=== PATIENT | male | born 1945 | race Caucasian/White ===

== ENCOUNTER → 2017-01-23 | Outpatient (CLI) | payer OTHER, MEDICARE ==
[~2017-01-23] MED LIST: ADVIN25050 INH; ALBUAER2 INH; AMB10 PO; ASPCH81 PO; ATV5 PO; CETI10TA84 PO; CHOL20007 PO; ESCI1TAB6 PO; LISI-729 PO; METO25TA3 PO; METO25TA56 PO; METO50TA7 PO; OMEG10007 PO; OXYC-57 PO; PSYL55.43 PO; RXC5 PO; ZNTT/150 PO
--- NOTE | 2017-01-23 13:02 | DIAGNOSTIC IMAGING REPORT ---
BILATERAL LOWER EXTREMITY VENOUS DOPPLER HISTORY: Pain. Radiculopathy. Claudication. LUMBAR STENOSIS COMPARISON STUDY: None. FINDINGS: There is normal compressibility, flow, and augmentation within the bilateral lower extremity deep venous systems. IMPRESSION: No DVT within the right or left lower extremity. Electronically signed by: Isidro Rucker M.D. 01/23/2017 1:01 PM Dictated Date/Time: 01/23/2017 1:01 PM
--- NOTE | 2017-01-29 13:23 | CODING QUERY MEDICAL NECESSITY ---
SUPPORTING DIAGNOSIS NEEDED A supporting diagnosis is required for the test/procedure performed on this patient in order for us to be reimbursed by the patient's insurance. Please provide a supporting diagnosis for the following test/procedure listed below next to the test name along with your signature. *If there is no additional diagnosis for this patient that would support the following test/procedure please document that below next to the test/procedure. Test(s)/Procedure(s) that require a supporting diagnosis: * VENOUS DOPPLER LOWER EXTREMITY DIAGNOSIS: * DOS: 01/23/17 Provider Signature: Date: Thank you Nancy Roberts Health Information Management Once completed, please kindly fax back to [phone] For questions please call [phone]
== END | disposition home or self-care (01) ==
LOC: C.ULTR 11:52
PROVIDERS: ATTEND Orthopaedic Surgery Orthopaedic Surgery of the Spine
DX: M48.06 Spinal stenosis, lumbar region (principal); M79.604 Pain in right leg; M51.36 Other intervertebral disc degeneration, lumbar region; M71.38 Other bursal cyst, other site; J45.909 Unspecified asthma, uncomplicated; I10 Essential (primary) hypertension; E78.00 Pure hypercholesterolemia, unspecified; E78.5 Hyperlipidemia, unspecified; K21.9 Gastro-esophageal reflux disease without esophagitis; M19.90 Unspecified osteoarthritis, unspecified site; F41.9 Anxiety disorder, unspecified; F32.9 Major depressive disorder, single episode, unspecified; E66.9 Obesity, unspecified; Z68.32 Body mass index [BMI] 32.0-32.9, adult; Z96.653 Presence of artificial knee joint, bilateral; Z98.1 Arthrodesis status; Z79.51 Long term (current) use of inhaled steroids; Z79.82 Long term (current) use of aspirin; Z79.891 Long term (current) use of opiate analgesic; Z79.899 Other long term (current) drug therapy; Z87.891 Personal history of nicotine dependence

== ENCOUNTER 2017-02-23 05:25 | Inpatient (IN) | payer OTHER, MEDICARE ==
[2017-01-23 13:25] VITALS: BMI 32.0
--- NOTE | 2017-01-23 14:16 | PAT Medication Instructions ---
Service Date Jan 23, 2017. Current Home Medication List Albuterol (Ventolin), 2 PUFFS INH PRN Aspirin (Aspirin Tab-Chewable *), 81 MG PO HS Cetirizine (Zyrtec), 10 MG PO QAM Cholecalciferol (Vitamin D3), 5,000 UNIT PO QPM Escitalopram Oxalate (Lexapro), 5 MG PO HS Fish Oil (Harper-3), 1 CAP PO BID Fluticasone Prop/Salmeterol (Advair Diskus 250/50 Mcg *), 1 PUFF INH BID PRN for PRN Lisinopril (Zestril), 5 MG PO QAM Metoprolol Succ (Toprol Xl) (Toprol-Xl), 12.5 MG PO BID Oxycodone/Acetaminophen 5MG/325MG (Percocet 5MG/325MG), 1-2 TABLETS PO Q6HR PRN Psyllium (Metamucil Powder), 1 DOSE PO BID Ranitidine (Zantac), 150 MG PO BID Zolpidem Tartrate (Zolpidem Tartrate), 10 MG PO HS Medication Instructions For Your Scheduled Surgery - Check with surgeon for instructions: Aspirin (Aspirin Tab-Chewable *), 81 MG PO HS - Hold the following medications 2 weeks prior to surgery: Fish Oil (Harper-3), 1 CAP PO BID - Hold the following medications the morning of surgery: Ranitidine (Zantac), 150 MG PO BID Psyllium (Metamucil Powder), 1 DOSE PO BID Lisinopril (Zestril), 5 MG PO QAM - Take the following medications the morning of surgery with a sip of water: Metoprolol Succ (Toprol Xl) (Toprol-Xl), 12.5 MG PO BID Fluticasone Prop/Salmeterol (Advair Diskus 250/50 Mcg *), 1 PUFF INH BID PRN for PRN Albuterol (Ventolin), 2 PUFFS INH PRN (bring with you to hospital morning of surgery) Oxycodone/Acetaminophen 5MG/325MG (Percocet 5MG/325MG), 1-2 TABLETS PO Q6HR PRN (okay to take up to 4 hours prior to surgery if needed) - Take the following medications as scheduled the night before surgery: Zolpidem Tartrate (Zolpidem Tartrate), 10 MG PO HS Ranitidine (Zantac), 150 MG PO BID Psyllium (Metamucil Powder), 1 DOSE PO BID Fluticasone Prop/Salmeterol (Advair Diskus 250/50 Mcg *), 1 PUFF INH BID PRN for PRN Escitalopram Oxalate (Lexapro), 5 MG PO HS Cholecalciferol (Vitamin D3), 5,000 UNIT PO QPM Cetirizine (Zyrtec), 10 MG PO QAM Albuterol (Ventolin), 2 PUFFS INH PRN Oxycodone/Acetaminophen 5MG/325MG (Percocet 5MG/325MG), 1-2 TABLETS PO Q6HR PRN If you have any questions please call us at [phone] (Vicky Dacosta PA-C) or [phone] or [phone]
--- NOTE | 2017-01-23 14:46 | DIAGNOSTIC IMAGING REPORT ---
CHEST PREADMISSION(PA/LAT) CLINICAL HISTORY: Preoperative chest COMPARISON STUDY: 01/05/2016, 04/26/2010 FINDINGS: The cardiac and mediastinal contours remain stable. There is no failure. There is no focal pulmonary consolidation. There are no pleural effusions. There is a right suprahilar opacity, similar to the prior 2009 study favoring a summation with the second costochondral junction. There are no pleural effusions.[ There are postsurgical changes present within the cervical spine IMPRESSION: Stable right suprahilar opacity likely representing a summation. No acute findings. Electronically signed by: Jr Marks M.D. 01/23/2017 2:44 PM Dictated Date/Time: 01/23/2017 2:43 PM
[2017-01-23 14:55] LABS: BASO % 0.6 %; BASO ABS # 0.05 K/uL (0-0.2); COMPLETE YES; EOS % 4.1 %; HEMATOCRIT 43.7 % (42-52); IG% 0.1 %; LYMPH % 30.3 %; LYMPH ABS # 2.58 K/uL (1.2-3.4); MEAN CELL VOLUME 91.4 fL (80-100); MEAN CORPUSCULAR HEMOGLOBIN 31.8 pg (25-34); MEAN CORPUSCULAR HGB CONC 34.8 g/dl (32-36); MEAN PLATELET VOLUME 10.7 fL (7.4-10.4); MONO % 8.3 %; NEUT % 56.6 %; PLATELET COUNT 196 K/uL (130-400); RED BLOOD COUNT 4.78 M/uL (4.7-6.1); WHITE BLOOD COUNT 8.51 K/uL (4.8-10.8)
[2017-01-23 15:01] LABS: URINE APPEARANCE CLEAR (CLEAR); URINE BILIRUBIN NEG (NEG); URINE COLOR YELLOW; URINE NITRITE NEG (NEG); URINE SPECIFIC GRAVITY 1.007 (1.000-1.030); UROBILINOGEN NEG (NEG)
[2017-01-23 15:12] LABS: MANUAL MICROSCOPIC REQUIRED? NO; REVIEW REQ? NO
[2017-01-23 16:08] LABS: BUN/CREATININE RATIO 18.1 (10-20); CALCIUM 9.3 mg/dl (8.5-10.1); CREATININE 0.99 mg/dl (0.60-1.40); POTASSIUM 4.4 mmol/L (3.5-5.1)
--- NOTE | 2017-02-22 14:32 | HISTORY & PHYSICAL EXAMINATION ---
DATE OF ADMISSION: 02/23/2017 CHIEF COMPLAINT: Low back pain with difficulty standing and walking. HISTORY OF PRESENT ILLNESS: Mr. Jara is an individual who is well known to our practice. He had previously undergone surgeries in 2007 and 2009 on his lumbar spine essentially is fused from L2-S1. 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 He has failed conservative measures and at this point is considering surgical intervention. He has not had any loss of bladder or bowel function. He denies any other numbness, tingling or paresthesias. PAST MEDICAL HISTORY: Significant for asthma, hypertension, hypercholesterolemia, spinal stenosis. PAST SURGICAL HISTORY: He has had previous knee replacement in 2002, shoulder surgery in 2002, left shoulder surgery in 1995, back surgeries in 2008 and 2009 as described above. CURRENT MEDICATIONS: Include advair, albuterol, fexofenadine, metoprolol ER, ranitidine, Zyrtec, and Lexapro. ALLERGIES: HE HAS ALLERGIES mold AND DUST. REVIEW OF SYSTEMS: Recorded in the patient's medical history. Negative except for what is in the HPI. SOCIAL HISTORY: The patient is a 71-year-old man. He is . He consumes 1 glass of wine occasionally. He is a former cigarette smoker, quit in 1990, smoked a pack a day for 35 years. PHYSICAL EXAMINATION: GENERAL: He stands and moves easily about the exam room. He is 5 foot 9 inches, 210 pounds. MUSCULOSKELETAL: His lower extremity motor exam reveals no focal atrophy. Strength and sensation are both intact. Gait stable. NEUROLOGIC: Visual hoffmann are grossly intact. CARDIOVASCULAR: Reveals no gross abnormalities. ABDOMEN: Soft, nontender. EXTREMITIES: Calves are supple and nontender. BACK: Has a well-healed midline surgical scar. RADIOGRAPHIC IMAGES: MRI of the lumbar spine is available for review. This reveals disk desiccation at the L1-L2 junction. Postoperative changes noted from L2-S1. He has enlarged facet joint cyst at the L1-2 junction which is producing significant spinal stenosis. 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 PLAN: At this point, the patient has failed conservative measures and is considering surgical intervention. Surgically consider removing the hardware from L2-L4, decompression at the L1-L2 junction and continuing his fusion from T12 back down to L2 or L3. The main benefit of this approach is significant chance of reduction of his radicular complaints to a lesser degree his lower back pain. Risks of surgery include but are not limited to from anesthetic, stroke, blindness, infection, bleeding requiring transfusion, incomplete relief of symptoms, adjacent level disease. After thorough discussion with the patient, he would like to proceed with surgery as outlined above. We will make any further arrangements as needed. ARTEM
[~2017-02-23] VITALS: Ht 172.7 cm; Wt 99.9 kg
[2017-02-23] VITALS (8 sets, daily range): BP systolic 102–176; BP diastolic 62–84; PULSE 58–87; TEMP 36.1–36.7; O2SAT 96–100; Ht 172.7 cm; Wt 99.9 kg
[~2017-02-23 05:25] MED LIST changes: -ATV5 PO; -METO25TA56 PO; -METO50TA7 PO; -RXC5 PO
[2017-02-23] MEDS ORDERED: LACTATED RINGER'S 1000ML 1,000 ML IV SCH (06:00)
[2017-02-23] MEDS ORDERED: CEFAZOLIN 2000 MG/60 ML D5W IV SCH (06:00)
[2017-02-23] MEDS ORDERED: FENTANYL CITRATE INJ 50 MCG/1 ML 2 ML VIAL ONE ×3 (06:41→09:35)
[2017-02-23] MEDS ORDERED: MIDAZOLAM HCL 1 MG/ML 2ML VIAL ONE (06:41)
[2017-02-23] MEDS ORDERED: ALBUMIN HUMAN 5% 12.5 GM/250 ML VIAL IV ONE (06:48)
[2017-02-23] MEDS ORDERED: SODIUM CHLORIDE 0.9% PF 50 ML VIAL ONE (07:03)
[2017-02-23] MEDS ORDERED: BACITRACIN 50000 UNIT VIAL ONE (07:03)
[2017-02-23] MEDS ORDERED: BUPIVACAINE/EPINEPHRINE 0.5% MPF 1:200,000 30 ML VIAL ONE (07:03)
[2017-02-23] MEDS ORDERED: LACTATED RINGER'S 1000ML 1,000 ML IV PRN ×2 (07:26→10:38)
[2017-02-23] MEDS ORDERED: MoRPHine SULFATE 2 MG/ML CARP IV PRN (07:30)
[2017-02-23] MEDS ORDERED: FENTANYL CITRATE INJ 50 MCG/1 ML 2 ML VIAL IV PRN ×2 (07:30→10:45)
[2017-02-23] MEDS ORDERED: ONDANSETRON INJ 2 MG/ML 2 ML VIAL IV PRN ×3 (07:30→10:45)
--- NOTE | 2017-02-23 07:30 | History & Physical Bridge Note ---
H&P Re-Evaluation Bridge Note: I have examined the patient, reviewed the History & Physical and in the interval since the performance of the History & Physical I have noted the following changes of clinical significance: No changes noted
[2017-02-23] MEDS ORDERED: HYDROmorphone INJ 2 MG/ML SYR/VIAL ONE ×3 (08:10→10:23)
[2017-02-23] MEDS ORDERED: DEXAMETHASONE SOD INJ 4 MG/ML VIAL ONE (09:38)
[2017-02-23] MEDS ORDERED: PROPOFOL IV EMULSION 10 MG/ML 20 ML VIAL IV ONE (09:38)
[2017-02-23] MEDS ORDERED: LIDOCAINE HCL 2% 2 ML VIAL (20MG/ML) ONE (09:38)
[2017-02-23] MEDS ORDERED: ROCURONIUM BROMIDE 10 MG/ML 5 ML VIAL ONE (09:38)
[2017-02-23] MEDS ORDERED: FLOSEAL HEMOSTATIC MATRIX 10ML TOP ONE (09:58)
[2017-02-23] MEDS ORDERED: SODIUM CHLORIDE 0.9% 1000ML 1,000 ML IV SCH (10:08)
--- NOTE | 2017-02-23 10:08 | [facility] Post Operative Brief Note ---
Immediate Operative Summary Operative Date Feb 23, 2017. 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 Rosas Dumont Diversity Intern Surgeon(s) Vernon Razo PA-C Estimated Blood Loss 250 Findings stenosis Specimens SPECIMEN: A: removed hardware lumbar spine explant L2-L4
--- NOTE | 2017-02-23 10:11 | DIAGNOSTIC IMAGING REPORT ---
INTRAOPERATIVE RADIOGRAPHS CLINICAL HISTORY: T12-L3 spinal fusion. Fluoroscopy time: 24 seconds. FINDINGS: 3 spot fluoroscopic views of the thoracal lumbar junction are presented. There are changes from discectomy at L3-L4, with laminectomy and posterior fusion seen from T12 -L3. Interpedicular screws are present at all levels. The orthopedic hardware appears intact. IMPRESSION: Intraoperative images from T12 -L3 spinal fusion as above. Electronically signed by: Foster Meier M.D. 02/23/2017 10:10 AM Dictated Date/Time: 02/23/2017 10:09 AM
[2017-02-23] MEDS ORDERED: PROMETHAZINE HCL INJ 12.5 MG in SODIUM CHLORIDE 0.9% 50ML 50 ML IV PRN (10:15)
[2017-02-23] MEDS ORDERED: ALUMINUM/MAGNESIUM SUSP 30 ML UDC PO PRN (10:15)
[2017-02-23] MEDS ORDERED: METOCLOPRAMIDE HCL INJ 5 MG/ML 2 ML VIAL IV PRN (10:15)
[2017-02-23] MEDS ORDERED: LORAZEPAM 0.5 MG TAB PO PRN (10:15)
[2017-02-23] MEDS ORDERED: DO NOT ADMINISTER FLU VACCINE PRN ×3 (10:15)
[2017-02-23] MEDS ORDERED: DO NOT ADMINISTER PNEUMOCOCCAL VACCINE PRN ×2 (10:15)
[2017-02-23] MEDS ORDERED: BISACODYL 10 MG SUPP PR PRN (10:15)
[2017-02-23] MEDS ORDERED: ACETAMINOPHEN IV 100 ML IV PRN (10:15)
[2017-02-23] MEDS ORDERED: MAGNESIUM HYDROXIDE SUSP 30 ML UDC PO PRN (10:15)
[2017-02-23] MEDS ORDERED: HYDROmorphone HCL 0.5MG/ML 50 ML CASSETTE IV PRN (10:15)
[2017-02-23] MEDS ORDERED: FLUTICASONE/SALMETEROL 250/50 (ADVAIR) 14 PUFF/1 INHALER INH PRN (10:15)
[2017-02-23] MEDS ORDERED: ACETAMINOPHEN 500 MG TAB PO PRN (10:15)
[2017-02-23] MEDS ORDERED: ALBUTEROL HFA 8 GM INHALER INH PRN (10:15)
[2017-02-23] MEDS ORDERED: SOD PHOSPHATE/SOD BIPHOSPHATE ENEMA 132 ML BTL PR PRN (10:15)
[2017-02-23] MEDS ORDERED: LORAZEPAM INJ 0.5 MG in SYRINGE 0 ML IV PRN (10:15)
[2017-02-23] MEDS ORDERED: hydrOXYzine HCL 25 MG TAB PO PRN (10:15)
[2017-02-23] MEDS ORDERED: NALOXONE HCL 0.4 MG/1 ML VIAL/CARP IV PRN (10:15)
[2017-02-23] MEDS ORDERED: FAMOTIDINE 20 MG TAB PO PRN (10:15)
[2017-02-23] MEDS ORDERED: ONDANSETRON INJ 2 MG/ML 2 ML VIAL ONE (10:26)
[2017-02-23] MEDS ORDERED: EpHEDrine SULFATE 50MG/5ML SYR ONE (10:26)
[2017-02-23] MEDS ORDERED: NEOSTIGMINE METHYLSULFATE 1 MG/ML 10ML VIAL ONE (10:26)
[2017-02-23] MEDS ORDERED: GLYCOPYRROLATE INJ 0.2 MG/ML VIAL ONE (10:26)
[2017-02-23] MEDS ORDERED: HYDROmorphone HCL 0.5MG/ML 50 ML CASSETTE ONE (10:40)
[2017-02-23] MEDS ORDERED: MoRPHine SULFATE 10 MG/ML CARP/VIAL IV PRN (10:45)
--- NOTE | 2017-02-23 11:42 | Anesthesiology Progress Note ---
Anesthesia Post Op Note Date & Time Feb 23, 2017 at 11:42 Vital Signs Pain Intensity: 0 Vital Signs Past 12 Hours Date Time Temp Pulse Resp B/P Pulse Ox O2 Delivery O2 Flow Rate FiO2 02/23/17 11:30 68 14 129/74 99 Nasal Cannula 2 02/23/17 11:15 36.2 70 20 125/80 98 Nasal Cannula 2 02/23/17 11:05 75 13 150/82 97 Nasal Cannula 2 02/23/17 10:55 77 12 140/80 100 Mask 10 02/23/17 10:45 73 15 168/92 100 Mask 10 02/23/17 10:38 36.2 73 16 168/87 99 Mask 10 02/23/17 05:54 36.6 58 20 176/84 97 Room Air Notes Mental Status: alert / awake / arousable, participated in evaluation Pt Amnestic to Procedure: Yes Nausea / Vomiting: adequately controlled Pain: adequately controlled Airway Patency, RR, SpO2: stable & adequate BP & HR: stable & adequate Hydration State: stable & adequate Anesthetic Complications: no major complications apparent
--- NOTE | 2017-02-23 14:12 | OPERATIVE REPORT ---
DATE OF OPERATION: 02/23/2017 PREOPERATIVE DIAGNOSIS: Spinal stenosis. POSTOPERATIVE DIAGNOSIS: Same. PROCEDURE PERFORMED: 1. Removal of posterior instrumentation, L2-L3, L3-L4. 2. Exploration of fusion L2-L3, L3-L4. 3. Lumbar decompression, medial facetectomies, foraminotomies T12-L1 and L1-L2. 4. Posterior spinal fusion T12-L1, L1-L2, L2-L3. 5. Placement posterior segmental instrumentation T12-L3 using Orthros rods and screws as well as a crosslink. 6. Placement of locally harvested morcellized autograft in posterior gutters. 7. Placement of Infuse collagen sponge combined with Mastergraft T12-L3 in the posterior gutters. SURGEON: Dr. Rosas Dumont. WEB SOLUTIONS ARCHITECT: Due to the complex nature of the procedure, the entire surgery was performed with the assistant womens volleyball coach of [employer]. The psychology assistant, under direct supervision, was involved in the actual performance of all aspects of the surgical procedure including hemostasis, tissue retraction and incision, instrument management, patient positioning, and wound closure. ANESTHESIA: General. DISPOSITION: The patient awakened and taken to PACU in stable condition. HISTORY OF PATIENT'S PROBLEMS: This is a 71-year-old male who presents with above-mentioned diagnosis. After failing an extensive course of nonoperative care, elected to undergo the above-mentioned procedure. Risks, benefits, pros, cons, and alternatives were outlined in detail preoperatively. PROCEDURE: The patient was met preoperatively and the case discussed and all questions were addressed. At that point, the patient was taken back to operative suite and after undergoing successful general intubation by the department of anesthesia was placed in prone position on Gerber table atop Yogi frame. All bony prominences were well padded and the eyes were inspected to ensure there was no external pressure placed upon them. At this point, lumbar spine was prepped and draped in normal sterile fashion. Sharp assistance of Bovie cautery performed down to and exposing the lamina and transverse processes of T12, L1 and instrumentation at L2, L3, L4 levels bilaterally. I then proceeded to remove the hardware bilaterally exploring the fusion mass noting it to be intact and then completed a complete laminectomy of L1 and partial laminectomy of T12 addressing severe lateral recess foraminal disease. Pedicle screws were then placed in T12, L1, L2 and L3 bilaterally with the assistance of fluoroscopy and appropriate size rods locked into position. A crosslink was locked into position. The transverse processes of T12, L1, L2 and L3 were burred to subcortical bleeding bone. Infuse collagen sponge combined with Mastergraft locally harvested morselized autograft was placed in the posterior gutters. A 7 flat YVES drain inserted. Incision was closed with 1-0 Vicryl in the fascia, 2-0 Vicryl subcutaneously, 4-0 Monocryl for final skin closure. Steri-Strips and sterile dressing placed. The patient was awakened and taken to PACU in stable condition. I attest to the content of the Intraoperative Record and any orders documented therein. Any exceptio ns are noted below.
[2017-02-23] MEDS ORDERED: METO25TA56 PO (14:39)
[2017-02-23] MEDS ORDERED: COUGH DROP (SUGAR FREE) LOZ 24 LOZ/1 BOX ONE (15:37)
--- NOTE | 2017-02-23 15:54 | Medical Consult ---
Consultation Date of Consultation: Feb 23, 2017. Attending Physician: Rosas Dumont D.O. Reason for Consultation: Med management History of Present Illness 71 y/o M who was admitted earlier today s/p T12-L1, L1-L2 laminectomy. Pt is having a bit of pain from lying pressure and it is worse when he coughs. Otherwise he is doing well from that standpoint. No chest pain or SOB. He did not eat his meal tray due to no appetite, but no n/v or other GI concerns preventing him from eating. He feels he will be hungry for dinner. Pt denies fever, abd pain, c/d, LE pain or swelling. ROS as noted above, otherwise neg. Past Medical/Surgical History HTN Asthma--rare use of rescue inhaler GERD Depression Spinal stenosis HLD--no longer on statin due to elevated CPK levels Social History Smoking Status: Former Smoker (quit 1989) Alcohol Use: occasionally (1-2 glasses of wine per month) Allergies Coded Allergies: Dust (Verified Allergy, Mild, sneezing, eyes water, 02/23/17) POLLEN (Verified Allergy, Mild, SNEEEZING EYES WATER, 02/23/17) Aromatic Oils (Unverified Allergy, Unknown, PERFUMES, POWDER,CANDLES- SNEEZING,SOB,, 02/23/17) NO KNOWN DRUG ALLERGIES (Verified Allergy, Unknown, NKDA, 02/23/17) Current Inpatient Medications Current Inpatient Medications Medications (Trade) Dose Ordered Sig/Ky Route Start Time Stop Time Status Last Admin Dose Admin Cefazolin Sodium 60 ml @ 100 mls/hr PREOP IV 02/23/17 06:00 02/23/17 18:00 02/23/17 07:37 100 MLS/HR Lactated Ringer's 1,000 ml @ 15 mls/hr Q24H IV 02/23/17 06:00 02/24/17 05:59 02/23/17 06:20 15 MLS/HR Dexamethasone Sodium Phosphate 6 mg/Syringe 1.5 ml @ 1 mls/min Q8H IV 02/23/17 14:00 02/24/17 06:02 Promethazine HCl/ Sodium Chloride (Phenergan Inj/ Nss 50ml) 50.5 ml @ 202 mls/hr Q6H PRN IV 02/23/17 10:15 03/25/17 10:14 Ondansetron HCl (Zofran Inj) 4 mg Q6H PRN IV 02/23/17 10:15 03/25/17 10:14 Metoclopramide HCl (Reglan Inj) 10 mg Q6H PRN IV 02/23/17 10:15 03/25/17 10:14 Lorazepam 0.5 mg 0.5 mg Q8H PRN PO 02/23/17 10:15 03/25/17 10:14 Lorazepam/Syringe (Ativan Inj/ Syringe) 0.25 ml @ 1 mls/min Q8H PRN IV 02/23/17 10:15 03/25/17 10:14 Pneumococcal Polysaccharide Vaccine 1 ea PRN PRN N/A 02/23/17 10:15 03/25/17 10:14 Influenza Virus Vacc Triv Types A&B 1 ea PRN PRN N/A 02/23/17 10:15 03/25/17 10:14 Polyethylene (Miralax Powder Packet) 17 gm Q6 PO 02/25/17 06:00 03/27/17 05:59 Bisacodyl (Dulcolax Supp) 10 mg DAILY PRN OH 02/23/17 10:15 03/25/17 10:14 Magnesium Hydroxide (Milk Of Magnesia Susp) 30 ml DAILY PRN PO 02/23/17 10:15 03/25/17 10:14 Hydromorphone HCl (Dilaudid Inj) 0.5-1mg prn moder... Q3H PRN IV 02/24/17 06:00 03/10/17 05:59 Oxycodone HCl 5-10mg prn moderate to sev... Q4H PRN PO 02/24/17 06:00 03/10/17 05:59 Cefazolin Sodium 2000 mg/Dextrose 60 ml @ 100 mls/hr Q8H IV 02/23/17 16:00 02/24/17 00:35 Lactated Ringer's (Lr 1000ml) 1,000 ml @ 150 mls/hr Q6H40M IV 02/23/17 10:08 03/25/17 10:07 Acetaminophen 1000 mg 1,000 mg Q8H PRN PO 02/23/17 10:15 03/25/17 10:14 Acetaminophen (Ofirmev Iv) 100 ml @ 400 mls/hr Q8H PRN IV 02/23/17 10:15 03/25/17 10:14 Naloxone HCl (Narcan Inj) 0.1 mg Q5M PRN IV 02/24/17 06:00 03/26/17 05:59 Senna/Docusate Sodium (Senokot S Tab) 2 tab HS PO 02/23/17 21:00 03/25/17 20:59 Sodium Biphosphate/ Sodium Phosphate (Fleet Enema) 132 ml ONE PRN OH 02/23/17 10:15 03/25/17 10:14 Hydroxyzine HCl (Vistaril Tab) 25 mg Q8H PRN PO 02/23/17 10:15 03/25/17 10:14 Al Hydroxide/Mg Hydroxide (Maalox Susp) 30 ml Q6H PRN PO 02/23/17 10:15 03/25/17 10:14 Famotidine (Pepcid Tab) 20 mg Q12 PRN PO 02/23/17 10:15 03/25/17 10:14 Diphenhydramine HCl (Benadryl Cap) 25 mg Q6H PRN PO 02/23/17 10:15 03/25/17 10:14 Miscellaneous Information (Discontinue MACHINE TOOL BUILDER) 1 ea TODAY@0600 ONCE N/A 02/24/17 06:00 02/24/17 06:01 Naloxone HCl (Narcan Inj) 0.1 mg Q5M PRN IV 02/23/17 10:15 02/24/17 06:00 Hydromorphone HCl 25 mg 25 mg PRN PRN IV 02/23/17 10:15 02/24/17 06:00 Sodium Chloride (Nss 1000ml) 1,000 ml @ 15 mls/hr Q24H IV 02/23/17 10:08 02/24/17 06:00 Albuterol (Ventolin Hfa Inhaler) 2 puffs DAILY PRN INH 02/23/17 10:15 03/25/17 10:14 Aspirin (Ecotrin Tab) 81 mg HS PO 02/23/17 21:00 03/25/17 20:59 Escitalopram Oxalate (Lexapro Tab) 5 mg HS PO 02/23/17 21:00 03/25/17 20:59 Salmeterol Xinafoate/ Fluticasone (Advair Diskus 250/50 Inh) 1 puff BID PRN INH 02/23/17 10:15 03/25/17 10:14 Lisinopril (Zestril Tab) 5 mg QAM PO 02/24/17 09:00 03/26/17 08:59 Metoprolol Tartrate (Lopressor Tab) 12.5 mg BID PO 02/23/17 21:00 03/25/17 20:59 Ranitidine HCl (zANTac TAB) 150 mg BID PO 02/23/17 21:00 03/25/17 20:59 Zolpidem Tartrate (Ambien Tab) 10 mg HS PO 02/23/17 21:00 03/25/17 20:59 Physical Exam Date Time Temp Pulse Resp B/P Pulse Ox O2 Delivery O2 Flow Rate FiO2 02/23/17 15:13 36.1 66 16 102/63 100 Nasal Cannula 4.0 02/23/17 14:10 36.4 66 16 115/66 99 Nasal Cannula 4.0 02/23/17 12:50 70 16 122/69 99 Nasal Cannula 4.0 02/23/17 12:31 36.6 71 16 116/71 96 Nasal Cannula 2.0 02/23/17 11:30 68 14 129/74 99 Nasal Cannula 2 02/23/17 11:15 36.2 70 20 125/80 98 Nasal Cannula 2 02/23/17 11:05 75 13 150/82 97 Nasal Cannula 2 02/23/17 10:55 77 12 140/80 100 Mask 10 02/23/17 10:45 73 15 168/92 100 Mask 10 02/23/17 10:38 36.2 73 16 168/87 99 Mask 10 02/23/17 05:54 36.6 58 20 176/84 97 Room Air General Appearance: WD/WN, no apparent distress Respiratory/Chest: normal breath sounds, no respiratory distress Cardiovascular: regular rate, rhythm, no edema Abdomen/GI: non tender, soft Extremities/Musculoskelatal: no calf tenderness, no pedal edema Neurologic/Psych: alert, normal mood/affect, oriented x 3 Skin: normal color, warm/dry Assessment & Plan 71 y/o M who was admitted on 02/23 s/p T12-L1, L1-L2 laminectomy Laminectomy: as per ortho HTN: stable, continue home meds Asthma: states rare inhaler use and no issues thus far post-op on standard [place] GERD: continue home meds HLD: intolerance in the form of elevated CPK levels per pt
[2017-02-23] MEDS: DEXAMETHASONE INJ 6 MG in SYRINGE 0 ML IV SCH ×2 (16:01→22:02)
[2017-02-23] MEDS: LACTATED RINGER'S 1000ML 1,000 ML IV SCH ×3 (16:02→23:27)
[2017-02-23] MEDS: CEFAZOLIN IV 2,000 MG in DEXTROSE 5% 50ML 50 ML IV SCH ×2 (16:02→23:27)
[2017-02-23] MEDS: ZOLPIDEM TARTRATE 10 MG TAB PO SCH (21:58)
[2017-02-23] MEDS: ASPIRIN 81 MG ECTAB PO SCH (21:58)
[2017-02-23] MEDS: ESCITALOPRAM OXALATE 10 MG TAB PO SCH (22:00)
[2017-02-23] MEDS: RANITIDINE HCL 150 MG TAB PO SCH (22:00)
[2017-02-23] MEDS: DOCUSATE SODIUM/SENNA 50/8.6MG TAB PO SCH (22:00)
[2017-02-23] MEDS: METOPROLOL TARTRATE 25 MG TAB PO SCH (22:01)
[2017-02-24 03:10] VITALS: BP 104/67; PULSE 73; TEMP 36.8; O2SAT 92
[2017-02-24 05:58] LABS: BASO % 0.1 %; BASO ABS # 0.01 K/uL (0-0.2); COMPLETE YES; HEMATOCRIT 35.1 % (42-52); IG% 0.2 %; LYMPH % 6.8 %; MEAN CELL VOLUME 91.9 fL (80-100); MEAN CORPUSCULAR HEMOGLOBIN 31.2 pg (25-34); MEAN CORPUSCULAR HGB CONC 33.9 g/dl (32-36); MEAN PLATELET VOLUME 11.1 fL (7.4-10.4); MONO % 3.5 %; NEUT % 89.4 %; PLATELET COUNT 172 K/uL (130-400); RED BLOOD COUNT 3.82 M/uL (4.7-6.1)
[2017-02-24] MEDS ORDERED: DC PCA ONE (06:00)
[2017-02-24] MEDS ORDERED: NALOXONE HCL 0.4 MG/1 ML VIAL/CARP IV PRN (06:00)
[2017-02-24] MEDS ORDERED: HYDROmorphone INJ 0.5 MG/0.5 ML SYR IV PRN (06:00)
[2017-02-24] MEDS: DEXAMETHASONE INJ 6 MG in SYRINGE 0 ML IV SCH (06:06)
[2017-02-24] MEDS: LACTATED RINGER'S 1000ML 1,000 ML IV SCH (06:08)
[2017-02-24] MEDS ORDERED: NURSING DECISION MEDICATION ORDER SCH (06:15)
[2017-02-24 06:26] LABS: BUN/CREATININE RATIO 12.2 (10-20); CALCIUM 8.5 mg/dl (8.5-10.1); POTASSIUM 4.2 mmol/L (3.5-5.1)
[2017-02-24 06:47] VITALS: BP 112/68; PULSE 72; TEMP 36.7; O2SAT 94
--- NOTE | 2017-02-24 08:52 | PROGRESS NOTE ---
DATE: 02/24/2017 Postop day 1. Back pain controlled. Leg pain improved. Vital signs stable. T-max 36.8. YVES drained 75 mL last shift. Hematocrit this a.m. 35.1. PHYSICAL EXAMINATION: The patient is in chair at bedside. Has good strength to testing, appears comfortable. ASSESSMENT: Status post thoracolumbar fusion. PLAN: At this time, we will continue physical therapy today, advance his bowel regimen, assess his progress on Sunday. If all progresses appropriately, I anticipate discharge home Sunday, possibly home health.
--- NOTE | 2017-02-24 10:18 | Family Medicine Progress Note ---
Progress Note Date of Service Feb 24, 2017. Subjective Pt evaluation today including: conversation w/ patient, conversation w/ family , physical exam, chart review, lab review, conversation w/ field consultant, review of inpatient medication list Pain: Minimal with pain medications PO Intake: good Voiding: tinajero catheter in place Patient with no acute events overnight Lower back pain has improved substantially since surgery. Patient has been ambulating around the [place] without difficulty. He denies any urinary/bowel incontinence or loss of sensation around his buttocks. Denies any fevers, night sweats, chills, chest pain, shortness of breath or palpitations Additional Comments: Please review notes for ROS Medications Current Inpatient Medications Medications (Trade) Dose Ordered Sig/Ky Route Start Time Stop Time Status Last Admin Dose Admin Promethazine HCl/ Sodium Chloride (Phenergan Inj/ Nss 50ml) 50.5 ml @ 202 mls/hr Q6H PRN IV 02/23/17 10:15 03/25/17 10:14 Ondansetron HCl (Zofran Inj) 4 mg Q6H PRN IV 02/23/17 10:15 03/25/17 10:14 Metoclopramide HCl (Reglan Inj) 10 mg Q6H PRN IV 02/23/17 10:15 03/25/17 10:14 Lorazepam 0.5 mg 0.5 mg Q8H PRN PO 02/23/17 10:15 03/25/17 10:14 Lorazepam/Syringe (Ativan Inj/ Syringe) 0.25 ml @ 1 mls/min Q8H PRN IV 02/23/17 10:15 03/25/17 10:14 Pneumococcal Polysaccharide Vaccine 1 ea PRN PRN N/A 02/23/17 10:15 03/25/17 10:14 Influenza Virus Vacc Triv Types A&B 1 ea PRN PRN N/A 02/23/17 10:15 03/25/17 10:14 Polyethylene (Miralax Powder Packet) 17 gm Q6 PO 02/25/17 06:00 03/27/17 05:59 Bisacodyl (Dulcolax Supp) [address] 02/23/17 10:15 03/25/17 10:14 Magnesium Hydroxide (Milk Of Magnesia Susp) 30 ml DAILY PRN PO 02/23/17 10:15 03/25/17 10:14 Hydromorphone HCl (Dilaudid Inj) 0.5-1mg prn moder... Q3H PRN IV 02/24/17 06:00 03/10/17 05:59 Oxycodone HCl (Roxicodone Immediate Rel Tab) 5-10mg prn moderate to sev... Q4H PRN PO 02/24/17 06:00 03/10/17 05:59 Acetaminophen 1000 mg 1,000 mg Q8H PRN PO 02/23/17 10:15 03/25/17 10:14 Acetaminophen (Ofirmev Iv) 100 ml @ 400 mls/hr Q8H PRN IV 02/23/17 10:15 03/25/17 10:14 Naloxone HCl (Narcan Inj) 0.1 mg Q5M PRN IV 02/24/17 06:00 03/26/17 05:59 Senna/Docusate Sodium (Senokot S Tab) 2 tab HS PO 02/23/17 21:00 03/25/17 20:59 02/23/17 22:00 2 TAB Sodium Biphosphate/ Sodium Phosphate (Fleet Enema) [address] 02/23/17 10:15 03/25/17 10:14 Hydroxyzine HCl (Vistaril Tab) 25 mg Q8H PRN PO 02/23/17 10:15 03/25/17 10:14 Al Hydroxide/Mg Hydroxide (Maalox Susp) 30 ml Q6H PRN PO 02/23/17 10:15 03/25/17 10:14 Famotidine (Pepcid Tab) 20 mg Q12 PRN PO 02/23/17 10:15 03/25/17 10:14 Diphenhydramine HCl (Benadryl Cap) 25 mg Q6H PRN PO 02/23/17 10:15 03/25/17 10:14 Albuterol (Ventolin Hfa Inhaler) 2 puffs DAILY PRN INH 02/23/17 10:15 03/25/17 10:14 Aspirin (Ecotrin Tab) 81 mg HS PO 02/23/17 21:00 03/25/17 20:59 02/23/17 21:58 81 MG Escitalopram Oxalate (Lexapro Tab) 5 mg HS PO 02/23/17 21:00 03/25/17 20:59 02/23/17 22:00 5 MG Salmeterol Xinafoate/ Fluticasone (Advair Diskus 250/50 Inh) 1 puff BID PRN INH 02/23/17 10:15 03/25/17 10:14 Lisinopril (Zestril Tab) 5 mg QAM PO 02/24/17 09:00 03/26/17 08:59 02/24/17 11:01 5 MG Metoprolol Tartrate (Lopressor Tab) 12.5 mg BID PO 02/23/17 21:00 03/25/17 20:59 02/24/17 11:00 12.5 MG Ranitidine HCl (zANTac TAB) 150 mg BID PO 02/23/17 21:00 03/25/17 20:59 02/24/17 10:59 150 MG Zolpidem Tartrate (Ambien Tab) 10 mg HS PO 02/23/17 21:00 03/25/17 20:59 02/23/17 21:58 10 MG Objective Vital Signs Date Time Temp Pulse Resp B/P Pulse Ox O2 Delivery O2 Flow Rate FiO2 02/24/17 12:14 36.6 69 16 114/68 94 Room Air 02/24/17 08:15 Room Air 02/24/17 06:47 36.7 72 16 112/68 94 Room Air 02/24/17 03:10 36.8 73 16 104/67 92 Room Air 02/23/17 23:05 36.5 83 18 122/71 96 Room Air 02/23/17 22:00 87 123/62 02/23/17 19:40 Nasal Cannula 4.0 02/23/17 19:26 Nasal Cannula 4.0 02/23/17 18:59 36.7 73 18 129/66 97 Nasal Cannula 4.0 02/23/17 15:13 36.1 66 16 102/63 100 Nasal Cannula 4.0 Physical Exam General Appearance: WD/WN, no apparent distress Respiratory/Chest: lungs clear, normal breath sounds, no accessory muscle use Cardiovascular: regular rate, rhythm, no JVD, no murmur Abdomen: normal bowel sounds, non tender, soft Extremities: non-tender, no pedal edema, no calf tenderness, normal capillary refill, + pertinent finding (large white bandage on back without any discharge or surrounding erythema) Neurologic/Psychiatric: alert, normal mood/affect, oriented x 3, + sensory deficit (chronic sensory deficit on 3-5th fingers on left hand and of the forearm up to the mid forearm), + pertinent finding (+2 knee jerk reflex bilaterally, sensation intact distally, 4/5 power on left lower extermity, 5/5 power on right lower extremity) Assessment and Plan 71 y/o M who was admitted on 02/23 s/p T12-L1, L1-L2 laminectomy Laminectomy - pain control per ortho (oxy, dilaudid) - continue pt HTN - stable - lisinopril 5mg - aspirin 81 mg Asthma - O2 nasal cannula - inhalers on PRN basis at home (rarely has to use inhalers) GERD - ranitidine HLD - intolerance in the form of elevated CPK Depression - escitalopram Dispo - home health Sunday FULL CODE Continued [facility] stay due to: ambulation difficulties History Resident Physician Supervision Note: I was present with Dr. Ybarra during the history and exam. I discussed the case with the resident and agree with the findings and plan as documented in the note. Any exceptions or clarifications are listed here. Pt resting in chair at time of examination without complaint. Pain well controlled on present regimen. Ambulating extensively with supervision, participating in PT well. Reports no DAWKINS, vision changes, CP/SOB, n/v/d/c, abd pain, sensory changes, incontinence. General Appearance: WD/WN, no apparent distress Respiratory: chest non-tender, lungs clear, normal breath sounds, no respiratory distress Cardiovascular: normal peripheral pulses, regular rate, rhythm, no edema, no murmur Gastrointestinal: normal bowel sounds, non tender, soft, no organomegaly Assessment/Plan 71 y/o male h/o HTN, asthma p/w LBP now s/p laminectomy LBP s/p laminectomy - management per primary team, PT onboard HTN - continue lisinopril, ASA Asthma - O2 per protocol, albuterol PRN GERD - ranitidine HLD - no present therapy 2/2 h/o rhabdo w/ statin Depression - escitalopram
[2017-02-24] MEDS: RANITIDINE HCL 150 MG TAB PO SCH ×2 (10:59→21:24)
[2017-02-24] MEDS: METOPROLOL TARTRATE 25 MG TAB PO SCH ×2 (11:00→21:24)
[2017-02-24] MEDS: LISINOPRIL 5 MG TAB PO SCH (11:01)
[2017-02-24 12:14] VITALS: BP 114/68; PULSE 69; TEMP 36.6; O2SAT 94
[2017-02-24 15:18] VITALS: BP 113/70; PULSE 63; TEMP 36.6; O2SAT 96
[2017-02-24] MEDS: ZOLPIDEM TARTRATE 10 MG TAB PO SCH (21:00)
[2017-02-24 21:22] VITALS: BP 121/67; PULSE 73
[2017-02-24] MEDS: ASPIRIN 81 MG ECTAB PO SCH (21:23)
[2017-02-24] MEDS: DOCUSATE SODIUM/SENNA 50/8.6MG TAB PO SCH (21:24)
[2017-02-24] MEDS: ESCITALOPRAM OXALATE 10 MG TAB PO SCH (21:24)
[2017-02-24 22:55] VITALS: BP 127/70; PULSE 65; TEMP 36.7; O2SAT 94
[2017-02-25] MEDS: OXYCODONE HCL IR 5 MG TAB (IMMEDIATE RELEASE) PO PRN ×2 (04:15→12:34)
[2017-02-25] MEDS ORDERED: COUGH DROP (SUGAR FREE) LOZ 24 LOZ/1 BOX ONE (04:18)
[2017-02-25] MEDS: POLYETHYLENE (MIRALAX) 17 GM PACK PO SCH ×2 (04:22→10:25)
[2017-02-25] MEDS ORDERED: NURSING DECISION MEDICATION ORDER SCH ×2 (04:30→10:00)
[2017-02-25] MEDS ORDERED: COUGH DROP (SUGAR FREE) LOZ 24 LOZ/1 BOX PO PRN (05:00)
[2017-02-25 07:08] VITALS: BP 141/74; PULSE 55; TEMP 36.6; O2SAT 98
[2017-02-25] MEDS: LISINOPRIL 5 MG TAB PO SCH (08:39)
[2017-02-25] MEDS: METOPROLOL TARTRATE 25 MG TAB PO SCH (08:40)
[2017-02-25] MEDS: RANITIDINE HCL 150 MG TAB PO SCH (08:40)
[2017-02-25] MEDS ORDERED: RXC5 PO (12:08)
--- NOTE | 2017-02-25 12:14 | Discharge Instructions ---
Discharge Instructions Date of Service Feb 25, 2017. Admission Reason for Admission: Lumbar Spinal Stenosis Discharge Discharge Diagnosis / Problem: same Discharge Goals Goal(s): Decrease discomfort Activity Recommendations Activity Limitations: per Instructions/Follow-up section . Instructions / Follow-Up Instructions / Follow-Up ACTIVITY RECOMMENDATIONS: SELF CARE INSTRUCTIONS AFTER THORACIC/LUMBAR FUSIONS 1. You may walk to your tolerance. It is good exercise for your legs and back. Expect some back and intermittent leg aches and pains. 2. You may perform "counter-top" level activities (make a sandwich, faiza with a project, etc.). 3. No bending or lifting of more than 10 pounds or back twisting of any nature (roll like a log when turning in bed). 4. You may ride in a car for 20-30 minutes at a time. No driving until after your first visit with your doctor. 5. Frequent changes of position and restricting sitting to 30 minutes at a time will help limit the amount of back spasms and stiffness you may experience. 6. You may discontinue the use of ambulatory aids (cane, crutches, etc.) once your strength and confidence allow. 7. You may php software engineer the shower and let water strike your incision when you arrive home at least once daily. Do not take a tub bath, sit in a hot tub or go into a swimming pool until after your first recheck in the office. SPECIAL CARE INSTRUCTIONS: VERY IMPORTANT TO READ AND REVIEW A. Your surgical incision has been closed with a cosmetic suture under the skin that will dissolve in about 6 weeks. In 14 days, you can use a pair of clean scissors and cut the suture that is left outside of the skin at the ends of your incision. 1. The small skin tapes can be removed 7 days after surgery if they have not fallen off by that point. 2. You may keep the wound open to air as much as possible to promote healing after post-op day number 5 unless told otherwise by your doctor. 3. If you think the wound looks like it is becoming infected (redness or worsening drainage) and/or you are experiencing fever, chill or worsening back pain and muscle spasms, contact the office so that we may evaluate you as soon as possible. B. Complications are uncommon, but please contact us if you have any signs or symptoms of: 1. wound infection (fever higher than 102.5 degrees F, redness, separation of wound, drainage, or increasing pain from the incision) 2. blood clots in legs (pain, swelling, redness and warmth in legs) 3. urinary tract infection (fever higher than 102.5 degrees F, burning upon urination or increased frequency of urination) 4. nerve problems (inability to walk on your toes or heels, numbness, loss of bowel or bladder control) 5. any other symptoms that concern you C. Please call the office at if you have any concerns or questions about your operation or recovery. D. No smoking! Smoking drastically decreases the chance of a solid fusion. E. Do not take any anti-inflammatory medications (Indocin, Advil, Motrin, Aspirin, Naprosyn, etc.) as these may inhibit the chance of a solid fusion. Tylenol is okay to take for pain. MANAGING PAIN AFTER SPINAL SURGERY 1. Narcotic medication is intended for short-term use and will be provided for surgical pain. Surgical pain usually lasts for a period of 4-6 weeks. Narcotic medication includes Percocet, Vicodin, Darvocet, Tylenol #3 or Lortab. 2. Longer-term pain is more appropriately treated with non-narcotic medication such as Tylenol ES. 3. Muscle spasm is not appropriately treated with narcotics. Muscle relaxers such as Soma, Flexeril or Skelaxin can be used along with Tylenol ES. 4. Remember that we all live with some "aches and pains". This is not unusual or uncommon after an injury or as we get older. a. Back pain is expected and may include muscle spasms for 4 to 6 weeks after surgery. The pain should gradually improve. If the pain worsens for no apparent reason, please contact the office. b. Intermittent leg pain may also be experienced and should not be concerned about unless it worsens for no apparent reason. If so, please contact the office. 5. We will provide appropriate medication within the normal guidelines of their prescribed use. We will also be very cautious and aware of potential abuse and extended duration of patients' medication needs. a. Pain medications are for your comfort and to assist with sleep and rest so that the tissue can heal. They are not provided in order to return to normal activity and should not be used through the day. To do so or worsening pain at night can result from ongoing tissue damage and development of tolerance to the prescribed medicine. 6. Please allow 2-3 days to process refills. Prescriptions will not be mailed but must be picked up at the office. FOLLOW UP VISIT: Keep your scheduled follow-up appointment. Any questions, please call the office at . Current Hospital Diet Patient's current hospital diet: Regular Diet Discharge Diet Recommended Diet: Regular Diet Procedures Procedures Performed: decomp Pending Studies Studies pending at discharge: no Medical Emergencies . Who to Call and When: Medical Emergencies: If at any time you feel your situation is an emergency, please call 911 immediately. . Non-Emergent Contact Non-Emergency issues call your: Surgeon . "Provider Documentation" section prepared by Tiago Bauman. . VTE Core Measure Inpt VTE Proph given/why not?: SCD's [place] Drug Monitoring Program Search Results: patient reviewed within database, no issues identified
--- NOTE | 2017-02-25 12:20 | Orthopedic Progress Note ---
Orthopedic Progress Note Date of Service Feb 25, 2017. Subjective Post OP Day: 2 Reports: feeling well, pain controlled w PO medications, Denies: SOB, calf pain , chest pain, complaints, light headedness, nausea / vomiting, using [employer] Objective calves soft nontender, N/V intact, A&O x3, hemovac drainage Date Time Temp Pulse Resp B/P Pulse Ox O2 Delivery O2 Flow Rate FiO2 02/25/17 07:38 Room Air 02/25/17 07:08 36.6 55 16 141/74 98 Room Air 02/24/17 22:55 36.7 65 16 127/70 94 Room Air 02/24/17 21:22 73 121/67 02/24/17 20:00 Room Air 02/24/17 15:18 36.6 63 16 113/70 96 Room Air Assessment & Plan Assessment: stable, pain controlled Plan: doing well, d/c drain, d/c home
[2017-02-25 12:45] VITALS: BP 141/74; PULSE 55; TEMP 36.6; O2SAT 98
--- NOTE | 2017-02-25 14:27 | Family Medicine Progress Note ---
Progress Note Date of Service Feb 25, 2017. Subjective Pt evaluation today including: conversation w/ patient, conversation w/ family , physical exam, conversation w/ sustainable design consultant, review of inpatient medication list Pain: minimal PO Intake: good Voiding: no voiding problems Patient with no acute events overnight He has been able to ambulate around the halls without any difficulty. He rates his pain as a 0/10 in severity. He says that he had slight difficulty sleeping as he would have an increase in his back pain when moving around in bed. He denies any fevers, night sweats, chills, saddle parasthesia, incontinence, leg numbness/tingling, chest pain, shortness of breath or palpitations Additional Comments: Please see note for ROS Objective Vital Signs Date Time Temp Pulse Resp B/P Pulse Ox O2 Delivery O2 Flow Rate FiO2 02/25/17 12:45 36.6 55 16 98 Room Air 02/25/17 07:38 Room Air 02/25/17 07:08 36.6 55 16 141/74 98 Room Air 02/24/17 22:55 36.7 65 16 127/70 94 Room Air 02/24/17 21:22 73 121/67 02/24/17 20:00 Room Air 02/24/17 15:18 36.6 63 16 113/70 96 Room Air Physical Exam General Appearance: WD/WN, no apparent distress Respiratory/Chest: lungs clear, normal breath sounds, no accessory muscle use Cardiovascular: regular rate, rhythm, no edema, no JVD, no murmur Extremities: normal range of motion, non-tender, no calf tenderness, normal capillary refill, + pertinent finding (Bandage over wound on back, no drainage or erythema around dressing) Neurologic/Psychiatric: alert, normal mood/affect, oriented x 3, + sensory deficit (3rd->5th finger on left hand to mid forearm), + pertinent finding ( normal power, reflexes and tone bilaterally in lower extremities) Assessment and Plan 71 y/o M who was admitted on 02/23 s/p T12-L1, L1-L2 laminectomy Laminectomy - pain control per ortho (oxy, dilaudid) - continue pt HTN - stable - lisinopril 5mg - aspirin 81 mg Asthma - O2 nasal cannula - inhalers on PRN basis at home (rarely has to use inhalers) GERD - ranitidine HLD - intolerance in the form of elevated CPK Depression - escitalopram Dispo - Discharge today with home health Discharge planning: home with home health History Resident Physician Supervision Note: I was present with Dr. Ybarra during the history and exam. I discussed the case with the resident and agree with the findings and plan as documented in the note. Any exceptions or clarifications are listed here. At present, pain is well controlled by predominantly behavioral modification. Pt reports no DAWKINS, vision changes, CP/SOB, nausea, sensation changes. General Appearance: WD/WN, no apparent distress Respiratory: chest non-tender, lungs clear, normal breath sounds, no respiratory distress Cardiovascular: normal peripheral pulses, regular rate, rhythm, no edema, no murmur Gastrointestinal: normal bowel sounds, non tender, soft, no organomegaly Skin Characteristics: other (dressing C/D/I w/o surrounding erythema) Assessment/Plan 71 y/o male h/o HTN, asthma p/w LBP now s/p laminectomy LBP s/p laminectomy - management per primary team, PT onboard HTN - well controlled at present - continue lisinopril, ASA Asthma - O2 per protocol, albuterol PRN GERD - ranitidine regimen, continue as OP HLD - no present therapy 2/2 h/o rhabdo w/ statin Depression - escitalopram
--- NOTE | 2017-03-02 15:43 | DISCHARGE SUMMARY ---
ADMITTING DIAGNOSIS: Spinal stenosis. DISCHARGE DIAGNOSIS: Same. OPERATION: Were a removal of instrumentation L2-L3, L3-L4, exploration of fusion, lumbar decompression from T12-L1 with continuation of spinal fusion from T12-L3. ATTENDING PHYSICIAN: Dr. Rosas Dumont. HOSPITAL COURSE AND TREATMENT: Mr. Jara is a patient with history, physical examination, radiographic images consistent with the above-mentioned diagnosis. For this reason, he was brought to the operating room on 02/15/2017, underwent the above-mentioned procedures performed by Dr. Dumont under general anesthesia. He left the operating room with YVES drain in place and was transferred to PACU in stable condition. He is placed on GI and DVT prophylaxis. Given a SHELF STOCKER for pain control. Medical consultation was obtained to help manage his medical issues during his stay. Throughout his hospital course, his calves remained supple and nontender. Dressing remained clean, dry and intact. He was seen by physical therapy postoperative day #1 for ambulation and gait training. On 02/25/2017 the patient was deemed safe for home discharge. His discharge orders were to resume his prehospital medications. Use oxycodone for pain control. He is to change his dressing once daily until the dressing was dry, then he may start showering and no longer needed to use his coverage. He was to avoid any full bending at the waist, lifting anything heavier than 5-7 pounds. He is to call the office for an appointment approximately 2 weeks out from surgery or sooner if he developed any fevers, chills, increased drainage from the incision, numbness or tingling.
== END 2017-02-25 14:02 | disposition home or self-care (01) | DRG 460 ==
LOC: ENRESERVDT → ENRESERVTM → C.ACU 05:25 → C.MSW 07:30
PROVIDERS: ADMIT Orthopaedic Surgery Orthopaedic Surgery of the Spine; ATTEND Orthopaedic Surgery Orthopaedic Surgery of the Spine
PROC: 0SG0071 Fusion of Lumbar Vertebral Joint with Autologous Tissue Substitute, Posterior Approach, Posterior Column, Open Approach (ICD-10-PCS; principal; 2017-02-23 07:45)
PROC: 3E0U0GB Introduction of Recombinant Bone Morphogenetic Protein into Joints, Open Approach (ICD-10-PCS; principal; 2017-02-23 07:45)
PROC: 0SP004Z Removal of Internal Fixation Device from Lumbar Vertebral Joint, Open Approach (ICD-10-PCS; principal; 2017-02-23 07:45)
PROC: 0RGA071 Fusion of Thoracolumbar Vertebral Joint with Autologous Tissue Substitute, Posterior Approach, Posterior Column, Open Approach (ICD-10-PCS; principal; 2017-02-23 07:45)
DX: M48.06 Spinal stenosis, lumbar region (principal); M51.36 Other intervertebral disc degeneration, lumbar region; M71.38 Other bursal cyst, other site; J45.909 Unspecified asthma, uncomplicated; I10 Essential (primary) hypertension; E78.00 Pure hypercholesterolemia, unspecified; E78.5 Hyperlipidemia, unspecified; K21.9 Gastro-esophageal reflux disease without esophagitis; M19.90 Unspecified osteoarthritis, unspecified site; F41.9 Anxiety disorder, unspecified; F32.9 Major depressive disorder, single episode, unspecified; E66.9 Obesity, unspecified; Z68.32 Body mass index [BMI] 32.0-32.9, adult; Z96.653 Presence of artificial knee joint, bilateral; Z98.1 Arthrodesis status; Z79.51 Long term (current) use of inhaled steroids; Z79.82 Long term (current) use of aspirin; Z79.891 Long term (current) use of opiate analgesic; Z79.899 Other long term (current) drug therapy; Z87.891 Personal history of nicotine dependence

== ENCOUNTER → 2018-05-21 | Outpatient (CLI) | payer OTHER, MEDICARE ==
[~2018-05-21] MED LIST changes: -METO25TA3 PO; +METO25TA56 PO; +RANI150T85 PO; +RXC5 PO; -ZNTT/150 PO
[2018-05-21 18:09] LABS: ALBUMIN 3.6 gm/dl (3.4-5.0); BLOOD UREA NITROGEN 18 mg/dl (7-18); CALCIUM 9.1 mg/dl (8.5-10.1); CARBON DIOXIDE 27 mmol/L (21-32); CREATININE 1.19 mg/dl (0.60-1.40); GLUCOSE 189 mg/dl (70-99); PHOSPHORUS 2.3 mg/dl (2.5-4.9); POTASSIUM 4.1 mmol/L (3.5-5.1); SODIUM 137 mmol/L (136-145)
== END | disposition home or self-care (01) ==
LOC: C.LABMFLN 11:36
PROVIDERS: ATTEND Family Medicine
DX: I10 Essential (primary) hypertension (principal)

== ENCOUNTER → 2018-05-30 | Outpatient (CLI) | payer OTHER, MEDICARE ==
[2018-05-31 06:11] LABS: HEMOGLOBIN A1C 5.9 % (4.5-5.6)
== END | disposition home or self-care (01) ==
LOC: C.LABMFLN 14:42
PROVIDERS: ATTEND Family Medicine
DX: R73.9 Hyperglycemia, unspecified (principal)

== ENCOUNTER 2023-12-05 08:42 | Observation (INO) ==
--- NOTE | 2023-11-07 09:03 | PAT Medication Instructions ---
Medication Instructions Date of Service November 07, 2023 Home Medications Medication Instructions Recorded lidocaine 5 % topical patch 1 patch transdermal .COMPLEX #3 06/02/19 Boxes Wheeled Walker #1 ea 01/24/23 gabapentin 300 mg capsule 300 mg PO HS #90 caps 03/12/23 zolpidem 10 mg tablet 10 mg PO HS PRN insomnia #90 tabs 09/12/23 lidocaine 5 % topical patch 1 patch transdermal .COMPLEX cetirizine 10 mg tablet 10 mg PO QAM omega-3 acid ethyl esters 1 gram capsule 1 cap PO BID cholecalciferol (vitamin D3) 25 mcg (1,000 unit) capsule 25 mcg PO QPM gabapentin 300 mg capsule 300 mg PO HS cinnamon bark 500 mg capsule (Cinnamon) 500 mg PO BID omeprazole 20 mg capsule,delayed release 20 mg PO QAM zolpidem 10 mg tablet 10 mg PO HS PRN insomnia Bacillus coagulans 800 million cell tablet (Digestive Advantage Probiotics-Prebiotic) 1,600 cell PO BID albuterol sulfate 90 mcg/actuation aerosol inhaler 1 inh inhalation QID PRN sob escitalopram oxalate 5 mg tablet 5 mg PO QPM famotidine 20 mg tablet 20 mg PO QPM lubiprostone 24 mcg capsule (Amitiza) 24 mcg PO BID polyethylene glycol 3350 17 gram oral powder packet (Miralax) 8.5 g PO Q3D psyllium husk (with sugar) 2.5 gram oral wafer (Metamucil Fiber Thin) 2 wafer PO QDL Continue as directed lidocaine 5 % topical patch 1 patch transdermal .COMPLEX (avoid placement near surgery site prior to surgery) STOP taking 2 weeks before surgery (or as soon as possible if surgery is within 2 weeks) omega-3 acid ethyl esters 1 gram capsule 1 cap PO BID cinnamon bark 500 mg capsule (Cinnamon) 500 mg PO BID DO NOT take the morning of surgery cetirizine 10 mg tablet 10 mg PO QAM Bacillus coagulans 800 million cell tablet (Digestive Advantage Probiotics- Prebiotic) 1,600 cell PO BID lubiprostone 24 mcg capsule (Amitiza) 24 mcg PO BID polyethylene glycol 3350 17 gram oral powder packet (Miralax) 8.5 g PO Q3D psyllium husk (with sugar) 2.5 gram oral wafer (Metamucil Fiber Thin) 2 wafer PO QDL Take morning of surgery With a small sip of water, OTHERWISE NOTHING TO EAT OR DRINK AFTER MIDNIGHT: omeprazole 20 mg capsule,delayed release 20 mg PO QAM albuterol sulfate 90 mcg/actuation aerosol inhaler 1 inh inhalation QID PRN sob (use if needed; please bring rescue inhaler with you to hospital day of surgery if possible) Take evening before surgery cholecalciferol (vitamin D3) 25 mcg (1,000 unit) capsule 25 mcg PO QPM gabapentin 300 mg capsule 300 mg PO HS zolpidem 10 mg tablet 10 mg PO HS PRN insomnia (if needed) Bacillus coagulans 800 million cell tablet (Digestive Advantage Probiotics- Prebiotic) 1,600 cell PO BID albuterol sulfate 90 mcg/actuation aerosol inhaler 1 inh inhalation QID PRN sob (if needed) escitalopram oxalate 5 mg tablet 5 mg PO QPM famotidine 20 mg tablet 20 mg PO QPM lubiprostone 24 mcg capsule (Amitiza) 24 mcg PO BID Other Notes If you have any questions please call us at [phone] or [phone] or [phone] or [phone]
--- NOTE | 2023-11-09 14:10 | Anesthesiology Consultation ---
Date of Service November 09, 2023 Assessment & Plan (1) Encounter for pre-operative examination: - check BSG am DOS. - post-op severe eye discomfort after previous shoulder surgery: patient and feel that this was due to the peripheral block for that shoulder surgery noting he had multiple previous surgeries without this issue and that this was first surgery with a peripheral nerve block. Sonosite and block notations marked for OR in case patient elects to pursue peripheral nerve block. - post-op urinary retention: patient and are requesting urinary catheterization during operation due to history of post-op urinary retention. They were advised that is determined/coordinated through the surgeon's office. Surgeon's office notified, they will follow-up with surgeon's office for further discussion/coordination. - Outpatient joint assessment: Patient is currently scheduled for inpatient pathway. If re-evaluated and patient/surgeon requests outpatient pathway, patient is not recommended candidate for outpatient joint program from anesthesia standpoint. Chart Review Chart Review: Acceptable Risk for Surgery and Patient seen in Pre Admission Testing Teaching & Discussion Pre-Anesthesia Teaching/Discussion Notes: Instructed NPO after midnight before surgery, except medications with 15 cc of water. Medication instructions provided according to the PAT guidelines. History Surgery Operation Date: 12/05/23 10:05 Proposed Procedures p Right Reverse Total Shoulder Arthroplasty - Doe Dejesus MD Height/Weight Height: 5 ft 8 in Weight: 86.4 kg Allergies Allergy/AdvReac Type Severity Reaction Status Date / Time pollen extracts Allergy Mild sneezing, Verified 11/09/23 14:28 eyes watering No Known Drug Allergies Allergy Unknown NKDA Verified 11/06/23 13:06 Dust Allergy Mild sneezing, Uncoded 11/06/23 13:06 eyes water Aromatic Oils Allergy Unknown perfume, Uncoded 11/09/23 14:28 powder, candles-SOB Medications Home Medications Medication Instructions Recorded Confirmed Last Taken lidocaine 5 % topical patch 1 patch transdermal .COMPLEX #3 06/02/19 11/06/23 Unknown Boxes cetirizine 10 mg tablet 10 mg PO QAM 06/05/19 11/06/23 Unknown omega-3 acid ethyl esters 1 gram 1 cap PO BID 06/05/19 11/06/23 Unknown capsule cholecalciferol (vitamin D3) 25 25 mcg PO QPM 03/01/21 11/06/23 Unknown mcg (1,000 unit) capsule Wheeled Walker #1 ea 01/24/23 06/11/23 Unknown gabapentin 300 mg capsule 300 mg PO HS #90 caps 03/12/23 11/06/23 Unknown cinnamon bark 500 mg capsule 500 mg PO BID 09/12/23 11/06/23 Unknown (Cinnamon) omeprazole 20 mg capsule,delayed 20 mg PO QAM 09/12/23 11/06/23 Unknown release zolpidem 10 mg tablet 10 mg PO HS PRN insomnia #90 tabs 09/12/23 11/06/23 Unknown Bacillus coagulans 800 million 1,600 cell PO BID 11/06/23 11/06/23 Unknown cell tablet (Digestive Advantage Probiotics-Prebiotic) albuterol sulfate 90 mcg/actuation 1 inh inhalation QID PRN sob 11/06/23 11/06/23 Unknown aerosol inhaler escitalopram oxalate 5 mg tablet 5 mg PO QPM 11/06/23 11/06/23 Unknown famotidine 20 mg tablet 20 mg PO QPM 11/06/23 11/06/23 Unknown lubiprostone 24 mcg capsule 24 mcg PO BID 11/06/23 11/06/23 Unknown (Amitiza) polyethylene glycol 3350 17 gram 8.5 g PO Q3D 11/06/23 11/06/23 Unknown oral powder packet (Miralax) psyllium husk (with sugar) 2.5 2 wafer PO QDL 11/06/23 11/06/23 Unknown gram oral wafer (Metamucil Fiber Thin) Past Medical History Medical History (Updated 11/09/23 @ 14:33 by Fanta Oliver PA-C) Allergic rhinitis Asthma well controlled. rarely uses rescue inhalers-last used several months ago Balance problems utilizes rolling walker to aid ambulation Benign colonic polyp Benign essential hypertension controlled, stable per pt C. difficile colitis hx 03/2023 - no problems since Cervical radiculopathy Chronic constipation Chronic low back pain unable to sleep in bed - patient sleeps in a recliner at home. Depression Diabetes mellitus diet controlled Esophageal reflux controlled, stable per pt Foot drop Frequent falls pt and deny any recent falls History of anesthesia complications post-op urinary retention. post-op severe eye discomfort "felt like sand in eyes." hypotension/slowness to wake after cataract surgery History of blood transfusion 2021 History of COVID-16 Mar 2022 - mild cold symptoms - treated with paxlovid. no current issues. Hx of basal cell carcinoma ear and scalp s/p excisions Hyperlipidemia Iron deficiency anemia Peripheral neuropathy bilateral feet - also has "no feeling in his left fingers/hand" Patient denies h/o stroke, seizures, heart attack, heart failure, or blood clots/DVTs. Exercise / Class Metabolic Activity III < 4 Walking/Shop/Light housework (ambulates with rolling walker-denies chest discomfort or shortness of breath with usual activities) Past Family History Family History Mother Stroke Grandmother Colorectal cancer Grandfather (Maternal) Myocardial infarction Grandfather (Paternal) Myocardial infarction Father Myocardial infarction Other No family history of adverse response to anesthesia Denies family history of Ovarian cancer Prostate cancer Breast cancer Lung cancer Past Surgical History Surgical History (Updated 11/09/23 @ 14:31 by Fanta Oliver PA-C) H/O arthroscopy of knee bilateral H/O neck surgery ACDF unsure of the levels fused. History of carpal tunnel surgery bilateral History of colonoscopy multiple History of esophagogastroduodenoscopy (EGD) History of prostate biopsy History of repair of rotator cuff bilateral S/P cholecystectomy S/P decompression of ulnar nerve at elbow bilateral S/P epidural steroid injection S/P knee replacement bilateral S/P lumbar fusion unsure of levels - last surgery in 2015. (total of 3 different lumbar fusions) severe chronic back pain S/P Mohs surgery for basal cell carcinoma Status post surgical removal of malignant neoplasm of skin Status post vasectomy Past Anesthesia History No Family Hx of Anesthesia Complications and Other (post-op urinary retention. post-op severe eye discomfort "felt like sand in eyes." pt felt eye discomfort was due to peripheral nerve block. hypotension/slowness to wake during cataract surgery) History of PONV No Hx of PONV and No Hx of Motion Sickness Social History Smoking Status: Former smoker Do You Dip or Chew Tobacco: No Hx Alcohol Use: Yes Alcohol type: beer alcohol intake frequency: other (once monthly) Hx Substance Use: No Review of Systems Patient denies chest pain, shortness of breath, dyspnea on exertion, fever, chills, cough, wheezing, or palpitations. Physical Exam Vital Signs Vitals BP 143/75 P 66 TEMP 97.9 SP02 97% on RA RESP 17 Physical Patient resting comfortably in chair in no acute distress, alert and oriented, responding appropriately throughout visit Full cervical extension range of motion without pain TMD 3.5 finger breadths Mallampati Score 2 Dentition: several crowns and implant-front upper; denies chipped or loose teeth, caps, or bridges Lungs: normal respiratory effort. Good air movement, clear throughout to auscultation, no adventitious breath sounds Cardiac: regular rate and rhythm, no murmurs noted Carotid arteries: negative bruit bilat Lab Results Anesthesia Preop Results Results Anesthesia Widget: WBC 8.49 K/ul (4.8-10.8) 11/09/23 Hgb 14.2 g/dl (14.0-18.0) 11/09/23 Hct 43.8 % (42.0-52.0) 11/09/23 Plt 245 K/uL (130-400) 11/09/23 Na 137 mmol/L (136-145) 11/09/23 K 4.3 mmol/L (3.5-5.1) 11/09/23 Cl 100 mmol/L (98-107) 11/09/23 CO2 30 mmol/L (21-32) 11/09/23 BUN 23 mg/dl (6-23) 11/09/23 Creat 1.03 mg/dl (0.6-1.4) 11/09/23 Glucose Level 128 mg/dl (70-99(Fasting)) H 11/09/23 PT 10.9 Seconds (9.0-12.0) 11/09/23 PTT 28 Seconds (21-31) 11/09/23 INR 1.0 (0.9-1.1) 11/09/23 HA1c 5.8 % (4.5-5.6) H 11/09/23 Urine Color Yellow 11/09/23 Urine Appearance Clear (Clear) 11/09/23 Urine pH 5.5 (4.5-7.5) 11/09/23 Urine Specific [place] 1.021 (1.000-1.030) 11/09/23 Urine Protein Negative (Negative) 11/09/23 Urine Glucose (UA) Negative (Negative) 11/09/23 Urine Ketones Negative (Negative) 11/09/23 Urine Blood Negative (Negative) 11/09/23 Urine Nitrite Negative (Negative) 11/09/23 Urine Bilirubin Negative (Negative) 11/09/23 Urine Urobilinogen Negative (Negative) 11/09/23 Urine Leukocyte Esterase Trace (Negative) H 11/09/23 Urine WBC (Auto) 10-30 /hpf (0-5) H 11/09/23 Urine RBC (Auto) 5-10 /hpf (0-4) H 11/09/23 Urine Hyaline Casts (Auto) 1-5 /lpf (0-5) 11/09/23 Urine Epithelial Cells (Auto) 10-20 /lpf (0-5) H 11/09/23 Urine Bacteria (Auto) Negative (Negative) 11/09/23 Blood Type A Positive 11/09/23 Antibody Screen NEGATIVE 11/09/23 Testing Laboratory Results Surgeon's office made aware of abnormal UA. Electrocardiogram Date: 04/09/23 NSR, rate 90 bpm PACs Possible anterior infarct cited on or before 06/04/22 Chest X-Ray Date: 04/09/23 No acute cardiopulmonary process. Other Testing CT abdomen pelvis 04/09/23 Abdominal aortic and branch vessel peripheral artery disease. Acute colitis differential diagnosis includes inflammatory or infectious colitis, correlate clinically. Acute duodenitis. Osteopenia.
--- NOTE | 2023-12-04 19:37 | History & Physical Report ---
Date of Service December 04, 2023 Assessment & Plan (1) Rotator cuff arthropathy of right shoulder: Plan: Treatment options discussed with the patient. He has failed conservative measures and would like to proceed with surgical management. Risks, benefits and alternatives to surgery including but not limited to infection, DVT, pain, stiffness, need for revision surgery, damage to blood vessels, damage to nerves, PE, , were discussed with the patient and they wish to proceed. Plan on right reverse total shoulder arthroplasty scheduled for December 05 at [facility] with Dr. Dejesus. All questions answered. Patient will follow-up postoperatively. History of Present Illness Chief Complaint: Right shoulder pain Primary Care Provider: MARIANN Edmonds 78-year-old male with past medical history significant for high cholesterol, history of basal cell carcinoma, diabetes, who presents with ongoing right s houlder pain. Pain is interfering with his daily activities. He has failed conservative measures and would like to proceed with surgical management. Patient denies headaches, sweats, fevers, chills, double vision, blurred vision, cough, sore throat, dysphagia, chest pain, sob, wheezing, n/v/d/c, numbness, tingling, fatigue, urinary symptoms, mood disorders. ROS positive for right shoulder pain and stiffness. Allergies Allergy/AdvReac Type Severity Reaction Status Date / Time pollen extracts Allergy Mild sneezing, Verified 11/13/23 14:31 eyes watering No Known Drug Allergies Allergy Unknown NKDA Verified 11/13/23 14:31 Dust Allergy Mild sneezing, Uncoded 11/13/23 14:31 eyes water Aromatic Oils Allergy Unknown perfume, Uncoded 11/13/23 14:31 powder, candles-SOB Home Medications Medication Instructions Recorded Confirmed Type lidocaine 5 % topical patch 1 patch transdermal .COMPLEX #3 06/02/19 11/13/23 Rx Boxes cetirizine 10 mg tablet 10 mg PO QAM 06/05/19 11/13/23 History omega-3 acid ethyl esters 1 gram 1 cap PO BID 06/05/19 11/13/23 History capsule cholecalciferol (vitamin D3) 25 25 mcg PO QPM 03/01/21 11/13/23 History mcg (1,000 unit) capsule Wheeled Walker #1 ea 01/24/23 11/13/23 Rx gabapentin 300 mg capsule 300 mg PO HS #90 caps 03/12/23 11/13/23 Rx cinnamon bark 500 mg capsule 500 mg PO BID 09/12/23 11/13/23 History (Cinnamon) omeprazole 20 mg capsule,delayed 20 mg PO QAM 09/12/23 11/13/23 History release zolpidem 10 mg tablet 10 mg PO HS PRN insomnia #90 tabs 09/12/23 11/13/23 Rx Bacillus coagulans 800 million 1,600 cell PO BID 11/06/23 11/13/23 History cell tablet (Digestive Advantage Probiotics-Prebiotic) albuterol sulfate 90 mcg/actuation 1 inh inhalation QID PRN sob 11/06/23 11/13/23 History aerosol inhaler escitalopram oxalate 5 mg tablet 5 mg PO QPM 11/06/23 11/13/23 History famotidine 20 mg tablet 20 mg PO QPM 11/06/23 11/13/23 History lubiprostone 24 mcg capsule 24 mcg PO BID 11/06/23 11/13/23 History (Amitiza) polyethylene glycol 3350 17 gram 8.5 g PO Q3D 11/06/23 11/13/23 History oral powder packet (Miralax) psyllium husk (with sugar) 2.5 2 wafer PO QDL 11/06/23 11/13/23 History gram oral wafer (Metamucil Fiber Thin) Past Med/Surg History Medical History History of anesthesia complications History of blood transfusion History of COVID-19 Hx of basal cell carcinoma C. difficile colitis Frequent falls Chronic constipation Iron deficiency anemia Diabetes mellitus Chronic low back pain Peripheral neuropathy Hyperlipidemia Foot drop Esophageal reflux Depression Cervical radiculopathy Benign essential hypertension Benign colonic polyp Balance problems Asthma Allergic rhinitis Surgical History History of colonoscopy S/P Mohs surgery for basal cell carcinoma S/P decompression of ulnar nerve at elbow History of repair of rotator cuff S/P lumbar fusion S/P epidural steroid injection History of esophagogastroduodenoscopy (EGD) History of carpal tunnel surgery Status post surgical removal of malignant neoplasm of skin Status post vasectomy History of prostate biopsy S/P knee replacement H/O arthroscopy of knee S/P cholecystectomy H/O neck surgery Family History Mother Stroke Grandmother Colorectal cancer Grandfather (Maternal) Myocardial infarction Grandfather (Paternal) Myocardial infarction Father Myocardial infarction Other No family history of adverse response to anesthesia Denies family history of Ovarian cancer Prostate cancer Breast cancer Lung cancer Social History Smoking Status: Former smoker Tobacco Type: Cigarettes Age Started Using Tobacco: 11; packs per day: 1; Second Hand Exposure: No; Do You Dip or Chew Tobacco: No; Tobacco Cessation Education Requested by Patient: No Hx Alcohol Use: Yes Alcohol type: beer Hx Substance Use: No Preferred Language: Luxembourgish Communication Ability: Effective Visual Impairment: Partially Limited Hearing Ability: Hard of Hearing Category Manager Required: No Beliefs That Will Affect Care: None marital status: Current Living Situation: Spouse current occupational status: retired How many Children do You have: 2 Other Information That Helps Us Care for You: No Feels Safe at Home: Yes Safety Concerns: Feels Safe At This Time Childhood Exposure to Second-Hand Smoke: Yes Diet: regular Diet Comment: regular caffeine: Yes (1 cup of coffee) during the past year weight has: decreased > 10 lbs Dental Care, Regularly: Yes Physical Activity Frequency: Does not Exercise Seatbelt Use: always Sunscreen Use: No Assistive Devices: Glasses and Walker Review of Systems All systems reviewed & are unremarkable except as noted in HPI & below Physical Exam Constitutional: well developed and well nourished; no acute distress Eyes: PERRL, conjunctivae normal, anicteric sclerae ENMT: external ear and nose normal, oropharynx normal Neck: trachea midline, no thyromegaly Respiratory: normal respiratory effort, lungs clear to auscultation Cardiovascular: RRR, no murmur, no edema Musculoskeletal: Right shoulder: Crepitus with range of motion. Positive pinch with signs, positive belly press. Positive Drop arm test, Tutu deformity. Abduction actively to 45 degrees, forward flexion to 30 degrees actively. Skin: no rashes, warm and dry Neurologic: patellar DTR's 2+ bilat, sensation intact Psychiatric: A+Ox3, euthymic affect Results & Data Diagnostic Findings Right shoulder radiographs demonstrate advanced rotator cuff arthropathy with proximal migration humerus with [id number] articulation and bone loss.
[~2023-12-05 08:42] MED LIST changes: -ADVIN25050 INH; -ALBUAER2 INH; -AMB10 PO; -ASPCH81 PO; +BUPIVACAINE 0.5 % 5 MG/1 ML PF 10ML VIAL ONE; -CETI10TA84 PO; -CHOL20007 PO; -ESCI1TAB6 PO; -LISI-729 PO; -METO25TA56 PO; +MIDAZOLAM HCL 1 MG/ML 2ML VIAL ONE; -OMEG10007 PO; -OXYC-57 PO; -PSYL55.43 PO; -RANI150T85 PO; -RXC5 PO; +dexAMETHasone 4 MG TAB PO SCH; +fentaNYL citrate PF 100 MCG/2 ML VIAL ONE
[2023-12-05] MEDS: GABAPENTIN 300 MG CAP PO SCH ×2 (09:35→20:58)
[2023-12-05] MEDS: LR 15ML/HR IV SCH (09:35)
[2023-12-05] MEDS: FAMOTIDINE 20 MG TAB PO SCH ×2 (09:35→20:58)
[2023-12-05] MEDS: ACETAMINOPHEN 500 MG TAB PO SCH ×2 (09:35→21:00)
[2023-12-05] MEDS: METOCLOPRAMIDE HCL 10 MG TABLET PO SCH (09:35)
[2023-12-05] MEDS: CeleBREX 200 MG CAP PO SCH (09:35)
[2023-12-05] MEDS: LR 60ML/HR IV SCH (09:35)
[2023-12-05] MEDS: dexAMETHasone**PF** 10 MG/ML VIAL IV SCH (09:36)
--- NOTE | 2023-12-05 10:02 | History & Physical Bridge Note ---
Date of Service December 05, 2023 History & Physical Bridge Note I have examined the patient, reviewed the History & Physical and in the interval since the performance of the History & Physical I have noted the following changes of clinical significance: no changes noted
[2023-12-05] MEDS ORDERED: ePHEDrine sulfate 50 MG/ML AMP IV PRN (10:08)
[2023-12-05] MEDS ORDERED: ATROPINE SULFATE 0.1 MG/ML 10ML SYR IV PRN (10:08)
[2023-12-05] MEDS ORDERED: ONDANSETRON INJ 2 MG/ML 2 ML VIAL IV PRN ×2 (10:08→16:06)
[2023-12-05] MEDS ORDERED: fentaNYL citrate PF 100 MCG/2 ML VIAL IV PRN (10:08)
[2023-12-05] MEDS: TRANEXAMIC ACID 1,000 MG **IV Pre-op IV SCH (10:10)
[2023-12-05] MEDS: ceFAZolin 2000MG 2,000 MG/15 ML SYR IV SCH ×2 (11:00→21:01)
--- OUTSIDE RECORDS SUMMARY | 2023-12-05 11:17 | External Medical Summary | Summary of Care ---
Author Name Unknown Organization [facility] Address [address] [place] [address] Phone [phone] Care Team Providers Care Locomotive Switch Operator Name Role Phone Raysa Lopez Primary Care Pro vider Reason for Visit * Reason Comments eRx-Medication Refill Encounter Details Date Type Department Care Team (Late st Contact Info) Description 11/11/2023 Refill Gastroenterology, Sean Wallace [address] [place] [address] [place] [id number] Ursula Wolfe, DO [address] [facility], [place], [place] [place] [address] Allergies Active Allergy Reactions Criticality Noted Date Comments Aromatic Oils 03/06/2023 Other Reaction(s): PERFUMES, POWDER,CANDLES-SNEEZING, SOB, Atorvastatin Other (Please comment) 11/10/2008 Dust 08/24/2003 Mold 09/09/2004 Pollen 08/24/2003 documented as of this encounter (statuses as of 11/13/2023) Medications Medication Sig Dispensed Refills Start Date End Date Status ALBUTEROL 90 MCG/ACT IN AERS 2 puffs every 4 hrs as needed 1 MDI 5 4 Active ADVAIR DISKUS 250-50 MCG/DOSE IN MISC Inhale by mouth. 0 5 Active OMEGA 3 1200 MG PO CAPS Take by mouth 2 times a day . 0 Active ZYRTEC ALLERGY 10 MG PO TABS one pill each day 0 Active Escitalopram Oxalate (LEXAPRO) 5 MG Tablet Take 1 Tablet by mouth at bedtime. 0 Active gabapentin (NEURONTIN) 300 MG Capsule at bedtime. 0 Active Famotidine 20 MG Oral Tablet Take 1 Tablet by mouth every night at bedtime. 0 Active Cinnamon 500 MG Oral Capsule Take 1 Capsule by mouth in the morning and 1 Capsule before bedtime. 0 Active Vitamin D High Potency 25 MCG (1000 UT) Oral Capsule (Cholecalciferol) Take 1 Capsule by mouth in the morning. 0 Active Artificial Tears 0.1-0.3 % Ophthalmic Solution (Dextran 70-Hypromellose) Instill into eye. 0 Active Vitamin B12 100 MCG Oral Tablet Take 5 Tablets by mouth in the morning. 0 Active Lidocaine 5 % External Patch (Lidoderm) Place 1 Patch topically on the skin daily. 0 Active Zolpidem Tartrate 10 MG Oral Tablet (Ambien) 0 2 Active Ondansetron 4 MG Oral Tablet Disintegrating (Zofran) Place 1 Tablet (4 mg) on tongue every 8 hours as needed for Nausea. dissolve on tongue. 12 Tablet 0 2 Active Bisacodyl 5 MG Oral Tablet Delayed Release Take 1 Tablet by mouth daily as needed for Constipation. 0 Active Polyethylene Glycol 3350 17 GM/SCOOP Oral Powder (SB Polyethylene Glycol 3350) Every 3 days 0 3 Active Probiotic Daily Oral Capsule Take 1 Capsule by mouth in the morning. 0 Active Omeprazole 20 MG Oral Capsule Delayed Release (PriLOSEC) Take 1 Capsule by mouth in the morning. 90 Capsule 1 3 Active Lubiprostone 24 MCG Oral Capsule (Amitiza) TAKE 1 CAPSULE BY MOUTH 2 TIMES A DAY WITH MORNING AND EVENING MEALS. 180 Capsule 1 4 Active Lubiprostone 24 MCG Oral Capsule (Amitiza) Take 1 Capsule by mouth 2 times a day with morning and evening meals. 180 Capsule 0 3 11/13/19 24 Discontinued documented as of this encounter (statuses as of 11/13/2023) Active Problems Problem Noted Date Diagnosed Date Hyponatremia 04/11/2023 C. difficile colitis 04/11/2023 Colitis, acute 04/10/2023 Acute duodenitis 04/10/2023 Hyperkalemia 04/10/2023 Malnutrition of moderate degree 04/10/2023 Diarrhea of presumed infectious origin Lab test positive for detection of COVID-19 viru s 06/05/2022 Iron deficiency anemia 06/04/2022 Dyslipidemia 06/04/2022 Depression with anxiety 06/04/2022 Acute GI bleeding 04/10/2022 Pre-syncope 04/09/2018 Bradycardia 04/09/2018 Dehydration 04/09/2018 HTN, goal below 150/90 04/09/2018 Asthma 04/09/2018 Pneumonia 04/09/2018 ADVANCE DIRECTIVE INFORMATION 04/17/2005 Overview: No, Advance Directive brochure given to patient at prior appointment. s/p knee replacement 08/24/2003 s/p skin cancer scalp;173.4 08/24/2003 documented as of this encounter (statuses as of 11/13/2023) Resolved Problems Problem Noted Date Diagnosed Date Resolved Date Rectal bleeding 06/04/2022 06/05/2022 documented as of this encounter (statuses as of 11/13/2023) Immunizations Name Administration Dates Next Due COVID-19 mRNA, LNP-s, No Pre serve, 2-Dose Series (Pfizer) 08/03/2021,12/13/2020,11/19/2020 Seasonal Influenza, Quadriva lent Hd (Fluzone Hd) 07/25/2023,08/02/2022 documented as of this encounter Social History Tobacco Use Types Packs/Day Years Used Date Smoking Tobacco: Former Cigarettes Q uit: 1989 Smokeless Tobacco: Never Alcohol Use Standard Drinks/Week Comments Yes 0 (1 standard drink = 0.6 oz pur e alcohol) Occ. beer Sex and Gender Information Value Date Recorded Sex Assigned at Not on file Gender Identity Not on file Sexual Orientation Not on file Job Start Date Occupation Industry Not on file Not on file Not on file documented as of this encounter Functional Status Functional Status Response Date of Assess ment Are you deaf or do you have serious difficulty h earing? No 04/10/2023 Are you blind or do you have serious difficulty seeing, even when wearing glasses? No 04/10/2023 Do you have serious difficul ty walking or climbing stairs? (5 years old or older) Yes 04/10/2023 Do you have difficulty dress ing or bathing? (5 years old or older) No 04/10/2023 Because of a physical, menta l, or emotional condition, do you have difficulty doing errands alone such as visiting a doctor s office or shopping? (15 years old or older) No 04/10/20 23 Cognitive Status Response Date of Assessm ent Because of a physical, menta l, or emotional condition, do you have serious difficulty concentrating, remembering, or making decisions? (5 years old or older) No 04/10/2023 documented as of this encounter Miscellaneous Notes * Telephone Encounter - Mary Maravilla MD - 11/13/2023 12:31 PM EST Signed Prescriptions: Disp Refills Lubiprostone 24 MCG Oral Capsule (Amitiza) 180 Ca*1 Sig: TAKE 1 CAPSULE BY MOUTH 2 TIMES A DAY WITH MORNING AND EVENING MEALS. Authorizing Provider: MRAY MARAVILLA * Telephone Encounter - Alana Torres RPh - 11/13/2023 11:32 AM EST Pending Prescriptions: Disp Refills Lubiprostone 24 MCG Oral Capsule (Amitiza) 180 Ca*1 Sig: TAKE 1 CAPSULE BY MOUTH 2 TIMES A DAY WITH MORNING AND EVENING MEALS. * Telephone Encounter - Alana Torres [facility] - 11/13/2023 11:31 AM EST Pending Prescriptions: Disp Refills Lubiprostone 24 MCG Oral Capsule (Amitiza*180 Ca*1 Sig: TAKE 1 CAPSULE BY MOUTH 2 TIMES A DAY WITH MORNING AND EVENING MEALS. Last Visit: 07/25/2023 (in office), Visit date not found (telemedicine) Next Visit: Visit date not found If no future appointments scheduled, and last appointment is greater than a year ago, please schedule patient for a follow-up appointment Last date the medication was ordered: 08/14/23 Pharmacy: [id number] Is this request for a controlled substance? No Urine Drug Screen:No results found for this or any previous visit. Patient Phone Numbers Labs: Lab Results Component Value Date/Time CREAT 0.8 04/12/2023 04:27 AM CREAT 0.83 11/17/2022 12:00 AM CREAT 0.8 04/10/2018 04:15 AM POTASSIUM 3.6 04/12/2023 04:27 AM POTASSIUM 3.7 11/17/2022 12:00 AM POTASSIUM 4.1 04/10/2018 04:15 AM ALT 12 04/09/2023 10:35 PM ALT 76 (H) 04/09/2018 04:17 PM documented in this encounter Plan of Treatment Scheduled Procedures Name Priority Associated Diagnoses Date/Ti me COLONOSCOPY FLEXIBLE PROXIMA L DIAGNOSTIC Recall History of colonic polyps Health Maintenance Due Date Last Done Comments Depression Screening 1955 Albumin/Creatinine Ratio 1961 DTaP,Tdap,and Td Vaccines (1 - Tdap) 1962 *SPIROMETRY ONCE FOR ASTHMA-ADULT 09/21/2022 COVID-19 Vaccine (2022- season) 2023 09/05/2022, 03/01/2022, 08/03/2021, Additional history exists GFR 04/12/2024 04/12/2023, 03/29, 04/09/2023, Additional history exists COLONOSCOPY-EVERY 5 YRS AGES 18-100 09/04/2028 09/04/2023, 09/04/2023, 02/20/2023, Additional history exists Pneumococcal Vaccine: 65+ Years Completed 01/11/2021, 04/23/2017, 12/10/2014, Additional history exists Zoster Vaccines Completed 05/06/2021, 03/2021, 11/07/2008, Additional history exists Influenza Vaccine (FLU shot) Completed , 08/02/2022, 08/02/2022, Additional history exists GARDASIL-HPV IMMUNIZATION SERIES Aged Out No longer eligible based on patient's age to complete this topic Hepatitis B Aged Out No longer eligi ble based on patient's age to complete this topic MENINGOCOCCAL (MENACTRA/MENVEO) Aged Out No longer eligible based on patient's age to complete this topic documented as of this encounter Medical Devices Implanted Type Area Automotive Design Layout Drafter Device Identifier Shelf Expiration Date Model / Serial / Lot Lens 17.0 Sn60wf - [id number] - [id number] Implanted:Qty: 1 on 06/03/2021 by Roland Mon MD at OR [facility] Right: Eye WILLIE : SURGICAL 08/24/2025 [id number].170 / [id number] / Lens 17.5 Sn60wf - [id number] - [id number] Implanted:Qty: 1 on 02/24/2022 by Roland Mon MD at OR [facility] Left: Eye WILLIE : SURGICAL 08/08/2025 SN60WF.1 75 / [id number] / N/A documented as of this encounter Advance Directives Latest Code Status on File Code Status Date Activated Date Inactivated Comments Full Code 04/10/2023 1:33 AM 04/12/2023 6:52 PM This order reflects the patients wishes and were consensually agreed upon. Question Answer Comments Discussion of Advance Directives occurred with: Patient Code Status History Code Status Date Activated Date Inactivated Comments Full Code 06/04/2022 5:23 PM 06/05/2022 9:10 PM This or shimon reflects the patients wishes and were consensually agreed upon. Question Answer Comments Discussion of Advance Directives occurred with: Patient Full Code 04/10/2022 1:34 PM 04/12/2022 8:37 PM This order reflects the patients wishes and were consensually agreed upon. Full Code 04/09/2018 6:57 PM 04/10/2018 11:21 PM This order reflects the patients wishes and were consensually agreed upon. Question Answer Comments Discussion of Advance Directives occurred with: Patient Care Teams Locomotive Switch Operator Relationship Specialty Start Date End Date Raysa Lopez CRNP [address] [place] [address] PCP - General Nurse Practitioner 04/09/23 documented as of this encounter
[2023-12-05] MEDS ORDERED: DEXAMETHASONE SOD INJ 4 MG/ML VIAL ONE (11:35)
[2023-12-05] MEDS ORDERED: ONDANSETRON INJ 2 MG/ML 2 ML VIAL ONE (11:35)
[2023-12-05] MEDS ORDERED: ePHEDrine sulfate 50 MG/5 ML SYR ONE (11:35)
[2023-12-05] MEDS ORDERED: ROCURONIUM BROMIDE 10 MG/ML 5 ML VIAL IV ONE (11:35)
[2023-12-05] MEDS ORDERED: PROPOFOL IV EMULSION 10 MG/ML 20 ML VIAL IV ONE (11:35)
[2023-12-05] MEDS ORDERED: PHENYLEPHRINE 100MCG/ML 10ML SYR IV ONE (11:35)
[2023-12-05] MEDS: TRANEXAMIC ACID 1,000 MG **IV Intra-op IV SCH (13:04)
[2023-12-05] MEDS ORDERED: SUGAMMADEX SODIUM 200 MG/2 ML VIAL IV ONE (13:26)
--- NOTE | 2023-12-05 13:57 | Post Operative Brief Note ---
Immediate Post Op Note v1 Date of Surgery December 05, 2023 Pre & Post Diagnosis Operation Date: 12/05/23 10:10 Pre-Op Diagnosis: Right shoulder advanced rotator cuff arthropathy with proximal migration humerus with cchp-dr-bgyv articulation and bone loss long head biceps rupture Post-Op Diagnosis: Right shoulder advanced rotator cuff arthropathy with proximal migration humerus with onit-ci-kkov articulation and bone loss long head biceps rupture I identified the patient and participated in the time-out.: Yes Procedure Operation Date: 12/05/23 10:10 Actual Procedures p Right Reverse Total Shoulder Arthroplasty(Right) - Doe Dejesus MD Surgeon Doe Dejesus MD Short Order Cook Mark LONG Estimated Blood Loss 350 Findings Consistent with Post-Op Diagnosis Specimens Humeral head Drains Rubalcava Catheter and Hemovac Drain (10fr) Anesthesia Type General Regional Complications none Disposition Disposition: Recovery Room Overlapping Procedure I was immediately available: during the entire case.
--- NOTE | 2023-12-05 14:43 | XRay Report ---
XR shoulder RT min 2V routine CLINICAL HISTORY: Post shoulder surgery COMPARISON STUDY: None. FINDINGS: Status post reverse right total shoulder arthroplasty. The hardware is intact. No fracture or dislocation. Skin bill and surgical drains are in place. Acromioplasty is also noted. IMPRESSION: Status post reverse right total shoulder arthroplasty. No evidence for hardware complica tion. ACT 112: Negative or not required by law. Electronically signed by: Ac Martins M.D. 12/05/2023 2:41 PM
--- NOTE | 2023-12-05 14:55 | Anesthesiology Progress Note ---
Date of Service December 05, 2023 Anesthesia Post Procedure Vital Signs Vital Signs: Temp Pulse Pulse Resp BP BP Pulse Ox 12/05/23 14:40 70 16 120/59 L 96 12/05/23 14:30 72 20 131/58 L 97 12/05/23 14:20 67 16 135/64 100 12/05/23 14:10 71 14 135/58 L 97 12/05/23 14:06 36.2 C L 66 12 146/64 H 97 12/05/23 09:25 36.8 C 66 18 174/89 H 97 O2 Del Method O2 Flow Rate 12/05/23 14:40 Room Air 12/05/23 14:30 Room Air 12/05/23 14:20 Oxymask 6 12/05/23 14:10 Oxymask 6 12/05/23 14:06 Oxymask 6 12/05/23 09:25 Room Air Transfer of Care Handoff Completed per policy Notes Mental Status: alert / awake / arousable Patient Amnestic to Procedure: Yes Nausea / Vomiting: adequately controlled Pain: adequately controlled Airway Patency, RR, SpO2: stable & adequate BP & HR: stable & adequate Hydration State: stable & adequate Anesthetic Complications: no major complications apparent and Pt Satisfied with anesthetic care
[2023-12-05] MEDS ORDERED: ALBUTEROL HFA 8 GM INHALER INH PRN (16:06)
[2023-12-05] MEDS ORDERED: MAGNESIUM HYDROXIDE SUSP 30 ML UDC PO PRN (16:06)
[2023-12-05] MEDS ORDERED: oxyCODONE HCL IR 5 MG TAB (IMMEDIATE RELEASE) PO PRN (16:06)
[2023-12-05] MEDS ORDERED: METOCLOPRAMIDE HCL INJ 5 MG/ML 2 ML VIAL IV PRN (16:06)
[2023-12-05] MEDS ORDERED: POLYETHYLENE (MIRALAX) 17 GM PACK PO PRN (16:06)
[2023-12-05] MEDS ORDERED: bisacodyL 10 MG SUPP PR PRN (16:06)
[2023-12-05] MEDS ORDERED: HYDROmorphone INJ 0.5 MG/0.5 ML SYR IV PRN (16:06)
[2023-12-05] MEDS ORDERED: TAMSULOSIN HCL 0.4 MG CAP PO PRN (16:06)
[2023-12-05] MEDS ORDERED: NALOXONE HCL 0.4 MG/1 ML VIAL/CARP IV PRN (16:06)
[2023-12-05] MEDS: SODIUM CHLORIDE 0.9% 1,000 ML IV SCH (16:10)
--- NOTE | 2023-12-05 16:33 | Operative Report ---
Post Operative Report Pre & Post Diagnosis Operation Date: 12/05/23 10:10 Pre-Op Diagnosis: Right shoulder advanced rotator cuff arthropathy with proximal migration humerus with vyzn-xq-ofnq articulation and bone loss, history of open rotator cuff repair Post-Op Diagnosis: Right shoulder advanced rotator cuff arthropathy with proximal migration humerus with lrzi-zc-bpdy articulation and bone loss, history of open rotator cuff repair I identified the patient and participated in the time-out.: Yes Procedure Operation Date: 12/05/23 10:10 Actual Procedures p Right Reverse Total Shoulder Arthroplasty(Right), excisional debridement soft tissue suture anchors and suture material.- Doe Dejesus MD Surgeon Doe Dejesus MD Vp Project Mark LONG Estimated Blood Loss 350 Findings Consistent with Post-Op Diagnosis Specimens Humeral head cut Drains 2 Hemovac Anesthesia Type General Regional Complications none Disposition Disposition: Recovery Room Indications 78-year-old male failed conservative management with end-stage rotator cuff arthropathy with failed open rotator cuff repair now with bone loss anterior superior escape with erosion of superior glenoid and some of the coracoid process as well. Grade 4 glenohumeral osteoarthritis with bone loss Description of Procedure The patient was taken to the operating room and anesthetized under regional block and general anesthetic. The patient was positioned on the operating table in a 30 beachchair position with a towel roll under the medial border of the right scapula. The arm was draped free to be able to manipulate the shoulder as needed. The right upper extremity was prepped and draped in usual sterile fashion. Exam demonstrated 135 degrees forward flexion with 70 degrees abduction and 90 degrees external rotation and 45 degrees internal rotation. Ylzl-xo-lfnn crepitation with anterior subluxed humerus. Old transverse scar over the deltoid. Large joint effusion. An anterior deltopectoral approach was performed. A longitudinal incision was made in the deltopectoral interval. The skin was incised sharply. Subcutaneous flaps were elevated off the fascia. The cephalic vein was dissected out and retracted lateral with the deltoid. The clavipectoral fascia was divided at the lateral margin of the conjoined tendon and extended up to the CA ligament. The clavipectoral fascia was significantly scarred from old surgery. The subscapularis tendon was 75% torn with about 25% remaining inferiorly with some of the capsule and the circumflex vessels were still identifiable. The remainder of the entire rotator cuff was torn retracted deteriorated preserving some of the teres minor posteriorly. Biceps tendon had ruptured and retracted and the very end of the biceps tendon sheath were still visible after the upper centimeter the pectoralis was released for inferior exposure. the biceps tendon was tenodesed to the pectoralis tendon with #2 FiberWire to prevent further retraction with resection of the remainder of the sheath proximally.. The proximal biceps was resected. The inferior remaining subscapularis tendon and capsule was taken down off the lesser tuberosity using a subperiosteal dissection. A #1 Vicryl suture was placed into the tendon and capsule tissue for retraction. The circumflex vessels were identified and tied off with silk ties and divided laterally. Retractors were readjusted and the inferior osteophytes were all resected using an artist chisel. A Steel elevator was used to release some of the capsule off of the neck of the humerus. A Fukuda retractor was placed into the joint retracting the humeral head posterior. Glenoid findings demonstrated massive spurs and widening of the glenoid due to erosion with superior anterior erosion into the base of the coracoid thinning the coracoid down to some extent due to anterior superior escape. Staying on bone some releases were performed enough to fully visualize glenoid. Attention was then taken to the humeral preparation. The cutting guide was placed into the humeral head. It was positioned at 30 of retroversion. Oscillating saw was used to resect the humeral head giving the cut above the level of the posterior rotator cuff insertion site. There were soft tissue suture anchors in the greater tuberosity which were removed along with suture tape type material. The humerus was then prepared for the stem. I used the ascend flex stem from [employer]. The sizing broaches were used followed by trial broaches up to a size 4B long which had the appropriate fit and fill. The appropriate sized cut protector was placed. The humerus was then retracted posterior to the glenoid. Preoperative templating was performed with blueprint planning and a custom cutting guide had been generated. We used this to find appropriate trajectory of the central pin for the glenoid which was planned at a 15 degree full wedge which was superior slightly anterior in position. The glenoid was sized for a 29 mm baseplate. After the central pin was reamed through both cortexes the trial 15 degree wedge was advanced over the pin to assure we are in the proper position and then the angled 15 degree reamer for the baseplate was used. The reamer for the central boss was used. The depth gauge was used to measure for the central screw. The [employer] perform 29 mm full wedge 15 degree baseplate was screwed into position. The base plate was transfixed with superior compression screw and inferior , anterior and posterior locking screws with stable fixation. The fan reamer was used for the 42 millimeter glenoid sphere. Attention was then taken to removing the massive osteophytes that were anterior and posterior to mitigate any impingement with rotation of the implant. Care was taken not to destabilize baseplate in any fashion. After irrigation the 42 glenoid sphere trial was impacted onto the baseplate and the screw was tightene d. It was noted that the cephalic vein was torn due to the retraction for exposure and we tied this off. Attention was taken back to the humerus. The cut protector was removed and the +0 high offset humeral tray trial was assembled to the trial stem rotated appropriately to get bony coverage and then screwed in position. A trial reduction was performed. A +6, 42 mm reversed trial insert demonstrated good stability and no shuck. The trials were removed. 2drill holes are made into the harder bone in the bicipital groove area and 2 #5 FiberWire sutures were placed transosseously. The canal was irrigated with pulsatile lavage with saline solution. The final component was assembled. The final component was 20 a 4B long humeral stem assembled to the +0 high offset humeral tray with a 42,+6 mm polyethylene reversed insert . Trial stem was placed back into the humerus with a cut protector and then humerus was retracted exposing the glenoid. The trial glenoid was removed and after irrigation the 42 mm standard glenoid sphere was impacted onto the baseplate and a security screw tightened. The final humeral implant was then impacted into the humerus with a tight press-fit. It was reduced to the glenoid sphere. Stability was verified. Subscapularis and capsular remnant was repaired with the #5 FiberWire sutures using Joao-Hunter suture technique. Lateral row soft tissue repair was performed with #2 FiberWire [id number] sutures. The pectoralis was repaired with #2 FiberWire [id number] sutures reinforcing the biceps tendon tenodesis. The arm was taken through a range of motion which demonstrated 135 degrees forward flexion 90 degrees abduction 70 degrees external rotation and 70 degrees internal rotation without tension on repair. The implant was stable through the range of motion tested. The wound was copiously irrigated. 2 Hemovac drains were placed. The deltopectoral interval was closed with [id number] #1 Vicryl sutures. The subcutaneous tissues were closed with 2- 0 Vicryl sutures. The skin was closed with bill sterile dressings were applied and a shoulder immobilizer .Mark LONG, my physician assistant printer floor covering ,assisted in the procedure to the entire procedure including patient positioning arm positioning prepping and draping soft tissue retraction instrument management suture management and performed the subcutaneous and skin closure and will participate in the postoperative care of the patient. I attest to the content of the Intraoperative Record and any orders documented therein. Any exceptions are noted below.
[2023-12-05] MEDS ORDERED: CARBOHYDRATES FOR HYPOGLYCEMIA PO PRN (17:30)
[2023-12-05] MEDS ORDERED: GLUCOSE 40% GEL 15 GM TUBE PO PRN (17:30)
[2023-12-05] MEDS ORDERED: GLUCAGON FOR INJ 1 MG VIAL SQ PRN (17:30)
[2023-12-05] MEDS ORDERED: DEXTROSE 50% 50 ML SYRINGE IV PRN (17:30)
[2023-12-05] MEDS ORDERED: GLUCOSE 10 TAB/TUBE PO PRN (17:30)
[2023-12-05] MEDS: INSULIN ASPART PER UNIT CHARGE SC SCH (17:52)
--- NOTE | 2023-12-05 19:35 | Hospitalist Consultation ---
Date of Consultation December 05, 2023 Assessment & Plan (1) Status post total shoulder arthroplasty: Pain/VTE/bowel management per primary orthopedic team (2) Steroid-induced hyperglycemia: No current diagnosis of diabetes but appears to be at risk of diabetes on previous HbA1c Suspect current hyperglycemia due to steroid BSG ACHS Novolog: --Goal BSG Range: Low 110 mg/dL, High 140 mg/dL --Correction Factor: 45 mg/dL/unit No carb coverage --BSGs ACHS if eating, q6h if npo (3) Diabetes mellitus: This appears to be a historical diagnosis. HbA1c 5.05 November 2023 and patient is not on any antidiabetic medication. Hyperglycemia noted postoperatively due to steroids (4) Asthma: On no maintenance inhalers for this. No acute exacerbation suspected. (5) Depression: Continue Lexapro daily (6) Esophageal reflux: Switch omeprazole to pantoprazole per hospital formulary Continue famotidine (7) Peripheral neuropathy: Continue gabapentin 300 mg p.o. HS (8) Insomnia: PDMP checked and patient's Ambien prescribed PRN Plan Thank you for the consult we will continue to follow History of Present Illness Reason for Consultation: post op med management Attending Physician: Doe Dejesus MD History of Present Illness Huseyin Jara is an 78-year-old male POD#0 right reverse total shoulder arthroplasty performed earlier today by Dr. Dejesus. Estimated blood loss 350 mL. Complications none. No acute concerns or questions from the patient. Allergies Allergy/AdvReac Type Severity Reaction Status Date / Time pollen extracts Allergy Mild sneezing, Verified 12/05/23 09:18 eyes watering No Known Drug Allergies Allergy Unknown NKDA Verified 12/05/23 09:18 Dust Allergy Mild sneezing, Uncoded 12/05/23 09:18 eyes water Aromatic Oils Allergy Unknown perfume, Uncoded 12/05/23 09:18 powder, candles-SOB Home Medications Medication Instructions Recorded Confirmed Type lidocaine 5 % topical patch 1 patch transdermal .COMPLEX #3 06/02/19 12/05/23 Rx Boxes cetirizine 10 mg tablet (Zyrtec) 10 mg PO QAM 06/05/19 12/05/23 History omega-3 acid ethyl esters 1 gram 1 cap PO BID 06/05/19 12/05/23 History capsule (Lovaza) cholecalciferol (vitamin D3) 25 25 mcg PO QPM 03/01/21 12/05/23 History mcg (1,000 unit) capsule Wheeled Walker #1 ea 01/24/23 11/13/23 Rx gabapentin 300 mg capsule 300 mg PO HS #90 caps 03/12/23 12/05/23 Rx cinnamon bark 500 mg capsule 500 mg PO BID 09/12/23 12/05/23 History (Cinnamon) omeprazole 20 mg capsule,delayed 20 mg PO QAM 09/12/23 12/05/23 History release Bacillus coagulans 800 million 1,600 cell PO BID 11/06/23 12/05/23 History cell tablet (Digestive Advantage Probiotics-Prebiotic) albuterol sulfate 90 mcg/actuation 1 inh inhalation QID PRN sob 11/06/23 12/05/23 History aerosol inhaler escitalopram oxalate 5 mg tablet 5 mg PO QPM 11/06/23 12/05/23 History (Lexapro) famotidine 20 mg tablet (Pepcid) 20 mg PO QPM 11/06/23 12/05/23 History lubiprostone 24 mcg capsule 24 mcg PO BID 11/06/23 12/05/23 History (Amitiza) polyethylene glycol 3350 17 gram 8.5 g PO Q3D PRN Constipation 11/06/23 12/05/23 History oral powder packet (Miralax) psyllium husk (with sugar) 2.5 2 wafer PO QDL 11/06/23 12/05/23 History gram oral wafer (Metamucil Fiber Thin) zolpidem 10 mg tablet (Ambien) 10 mg PO HS PRN insomnia 12/05/23 12/05/23 History acetaminophen 500 mg tablet 1,000 mg (2 x 500 mg) PO Q8 #60 12/06/23 Rx (Tylenol Extra Strength) tabs cefadroxil 500 mg capsule 500 mg PO BID #28 caps 12/06/23 Rx oxycodone 5 mg tablet 5 - 10 mg (1 - 2 x 5 mg) PO 12/06/23 Rx .Q4h-6h PRN pain #30 tabs Patient History Medical History (Updated 12/06/23 @ 07:10 by Ramesh Del Rosario MD) Insomnia History of anesthesia complications post-op urinary retention. post-op severe eye discomfort "felt like sand in eyes." hypotension/slowness to wake after cataract surgery History of blood transfusion 2021 History of COVID-16 Mar 2022 - mild cold symptoms - treated with paxlovid. no current issues. Hx of basal cell carcinoma ear and scalp s/p excisions C. difficile colitis hx 03/2023 - no problems since Frequent falls pt and deny any recent falls Chronic constipation Iron deficiency anemia Diabetes mellitus diet controlled Chronic low back pain unable to sleep in bed - patient sleeps in a recliner at home. Peripheral neuropathy bilateral feet - also has "no feeling in his left fingers/hand" Hyperlipidemia Foot drop Esophageal reflux controlled, stable per pt Depression Cervical radiculopathy Benign essential hypertension controlled, stable per pt Benign colonic polyp Balance problems utilizes rolling walker to aid ambulation Asthma well controlled. rarely uses rescue inhalers-last used several months ago Allergic rhinitis Surgical History (Updated 12/06/23 @ 06:58 by Mark Sam PA-C) History of colonoscopy multiple S/P Mohs surgery for basal cell carcinoma S/P decompression of ulnar nerve at elbow bilateral History of repair of rotator cuff bilateral S/P lumbar fusion unsure of levels - last surgery in 2015. (total of 3 different lumbar fusions) severe chronic back pain S/P epidural steroid injection History of esophagogastroduodenoscopy (EGD) History of carpal tunnel surgery bilateral Status post surgical removal of malignant neoplasm of skin Status post vasectomy History of prostate biopsy S/P knee replacement bilateral H/O arthroscopy of knee bilateral S/P cholecystectomy H/O neck surgery ACDF unsure of the levels fused. Family History Mother Stroke Grandmother Colorectal cancer Grandfather (Maternal) Myocardial infarction Grandfather (Paternal) Myocardial infarction Father Myocardial infarction Other No family history of adverse response to anesthesia Denies family history of Ovarian cancer Prostate cancer Breast cancer Lung cancer Social History Smoking Status: Former smoker Tobacco Type: Cigarettes Age Started Using Tobacco: 11; packs per day: 1; Second Hand Exposure: No; Do You Dip or Chew Tobacco: No; Tobacco Cessation Education Requested by Patient: No Hx Alcohol Use: Yes Alcohol type: beer Hx Substance Use: No Preferred Language: Yakut Communication Ability: Effective Visual Impairment: Partially Limited Hearing Ability: 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 Beliefs That Will Affect Care: None marital status: Current Living Situation: Spouse current occupational status: retired How many Children do You have: 2 Other Information That Helps Us Care for You: No Feels Safe at Home: Yes Safety Concerns: Feels Safe At This Time Childhood Exposure to Second-Hand Smoke: Yes Diet: regular Diet Comment: regular caffeine: Yes (1 cup of coffee) during the past year weight has: decreased > 10 lbs Dental Care, Regularly: Yes Physical Activity Frequency: Does not Exercise Seatbelt Use: always Sunscreen Use: No Assistive Devices: Glasses and Walker Review of Systems Review of Systems: All systems reviewed & are unremarkable except as noted in HPI & below Physical Exam Constitutional: WD/WN, vitals as above Eyes: + anicteric sclerae; normal pupil size Respiratory: normal respiratory effort, lungs clear to auscultation Cardiovascular: RRR, no murmur, no edema Gastrointestinal (Abdomen): normal bowel sounds, soft, nontender, no hepatosplenomegaly Skin: no rashes, warm and dry Results & Data Results & Data Vital Signs (Past 12 Hours) Vital Signs Temp Pulse Pulse Resp BP BP Pulse Ox 12/05/23 18:05 36.5 C 77 16 117/67 97 12/05/23 17:12 36.4 C L 76 16 121/65 97 12/05/23 16:39 36.4 C L 77 16 135/69 95 12/05/23 16:06 36.4 C L 76 14 135/72 97 12/05/23 15:45 74 12 124/69 96 12/05/23 15:30 75 12 129/65 96 12/05/23 15:15 74 12 139/67 95 12/05/23 15:00 68 18 120/58 L 95 12/05/23 14:50 36.3 C L 64 20 120/61 96 12/05/23 14:40 70 16 120/59 L 96 12/05/23 14:30 72 20 131/58 L 97 12/05/23 14:20 67 16 135/64 100 12/05/23 14:10 71 14 135/58 L 97 12/05/23 14:06 36.2 C L 66 12 146/64 H 97 12/05/23 09:25 36.8 C 66 18 174/89 H 97 O2 Del Method O2 Flow Rate 12/05/23 18:05 Room Air 12/05/23 17:12 Room Air 12/05/23 16:39 Room Air 12/05/23 16:06 Room Air 12/05/23 15:45 Room Air 12/05/23 15:30 Room Air 12/05/23 15:15 Room Air 12/05/23 15:00 Room Air 12/05/23 14:50 Room Air 12/05/23 14:40 Room Air 12/05/23 14:30 Room Air 12/05/23 14:20 Oxymask 6 12/05/23 14:10 Oxymask 6 12/05/23 14:06 Oxymask 6 12/05/23 09:25 Room Air PG Care Time/CCT Total # of Minutes Spent Total Time Spent with Patient: Total time spent is greater than 50% in coordination of care (as documented) at patient's floor/unit and/or counseling patient: Coding Level of Care Code 08725 IN/OBS CONSULT LVL 4,60M Diagnoses Status post total shoulder arthroplasty Z96.619 Steroid-induced hyperglycemia R73.9; T38.0X5A Diabetes mellitus E11.9 Asthma J45.909 Depression F32.9 Esophageal reflux K21.9 Peripheral neuropathy G62.9 Insomnia G47.00
[2023-12-05] MEDS: ESCITALOPRAM OXALATE 10 MG TAB PO SCH (20:57)
[2023-12-05] MEDS: SENNA 8.6 MG TAB PO SCH (20:58)
[2023-12-05] MEDS: DOCUSATE SODIUM 100 MG CAP PO SCH (20:58)
[2023-12-05] MEDS: LUBIPROSTONE 8 MCG CAP PO SCH (20:58)
[2023-12-05] MEDS: CHOLECALCIFEROL 25 MCG (1000 UNITS) TAB PO SCH (20:58)
[2023-12-05] MEDS ORDERED: INSULIN ASPART PER UNIT CHARGE SC SCH (21:00)
[2023-12-05] MEDS: ZOLPIDEM TARTRATE 10 MG TAB PO PRN (21:01)
[2023-12-06 06:52] LABS: Basophils # (auto) 0.04 K/uL (0.00-0.20); Basophils % (auto) 0.3 %; Eosinophils # (auto) 0.01 K/uL (0.00-0.50); Eosinophils % (auto) 0.1 %; Hematocrit (blood only) 36.2 % (42.0-52.0); Hemoglobin 11.6 g/dl (14.0-18.0); Immature Granulocytes # (auto) 0.03 K/uL (0.01-0.20); Immature Granulocytes % (auto) 0.3 %; Lymphocytes # (auto) 1.08 K/uL (1.20-3.40); Mean Corpuscular Hemoglobin 28.9 pg (25.0-34.0); Mean Corpuscular Volume 90.3 fL (80.0-100.0); Mean Platelet Volume 11.1 fL (9.4-12.4); Monocytes # (auto) 0.87 K/uL (0.11-0.59); Monocytes % (auto) 7.3 %; Neutrophils # (auto) 9.94 K/uL (1.40-6.50); Platelet Count 232 K/uL (130-400); RDW Coefficient of Variation 13.5 % (11.5-14.5); RDW Standard Deviation 44.5 fL (36.4-46.3); Red Blood Count 4.01 M/uL (4.70-6.10); White Blood Count 11.97 K/ul (4.8-10.8)
--- NOTE | 2023-12-06 07:00 | Orthopedic Progress Note ---
Date of Service December 06, 2023 Assessment & Plan (1) Status post reverse total arthroplasty of right shoulder: Plan: Postop day #1 right reverse total shoulder arthroplasty -PT/OT: No shoulder range of motion. May do elbow/wrist/hand motion, pendulums, shrugs. -DVT prophylaxis: SCDs -A.m. labs are pending -Pain management as written -Discharge planning: Plan on discharge home if progresses well with therapy. If fails to progress possibly may need rehab. Admission and Anticipated Discharge Date Admission Date: December 05, 2023 Subjective Patient is postop day 1 right reverse total shoulder. He is doing well this morning. No current complaints. Denies chest pain, shortness of breath, nausea/vomiting/diarrhea, headaches or dizziness. Review of Systems Review of Systems: All systems reviewed & are unremarkable except as noted in Subjective Physical Exam Physical Exam: Right shoulder: Sling is in place. Dressing is clean, dry, intact. Fingers are mobile with good quality compliance consultant strength. Distal neurovascular status and sensation is grossly intact. Results & Data Vital Signs (Past 12 Hours) Vital Signs Temp Pulse Resp BP Pulse Ox O2 Del Method 12/06/23 04:26 36.3 C L 68 18 144/77 H 96 Room Air 12/05/23 23:25 36.8 C 68 18 133/71 96 Room Air 12/05/23 19:05 36.6 C 81 18 123/71 96 Room Air
[2023-12-06 07:06] LABS: BUN Creatinine Ratio 15.1 (10-20); Calcium 8.5 mg/dl (8.6-10.3); Creatinine Clr Calc Pharmacy 59.6 ml/min; Est GFR (African American) 76.4 ml/min; Potassium 4.2 mmol/L (3.5-5.1)
[2023-12-06] MEDS: CETIRIZINE HCL 10 MG TABLET PO SCH (07:45)
[2023-12-06] MEDS: PANTOprazole 40 MG TAB PO SCH (07:45)
[2023-12-06] MEDS: MULTIVITAMIN TAB PO SCH (07:45)
--- NOTE | 2023-12-06 08:05 | Hospitalist Progress Note ---
Date of Service December 06, 2023 Assessment & Plan (1) Status post total shoulder arthroplasty: Plan: s/p Right Reverse Total Shoulder Arthroplasty(Right) - Doe Dejesus MD on 12/05. EBL 350cc Pain/VTE/bowel management per primary orthopedic team WBC elevation suspected 2nd to stress from surgery/steroids. Afebrile. Hgb 14.2--> 11.6, acute blood loss anemia from surgery (EBL 350cc, hemovac output 235cc) and some dilutional aspect from IVF suspected Dispo: planning for DC today if does well with therapy, possible need for rehab (2) Steroid-induced hyperglycemia: Plan: No current diagnosis of diabetes but appears to be at risk of diabetes on previous HbA1c Suspect current hyperglycemia due to steroid BSG ACHS Novolog: --Goal BSG Range: Low 110 mg/dL, High 140 mg/dL --Correction Factor: 45 mg/dL/unit No carb coverage --BSGs ACHS if eating, q6h if npo BSGs stable on monitor (3) Diabetes mellitus: Plan: This appears to be a historical diagnosis. HbA1c 5.05 November 2023 and patient is not on any antidiabetic medication. Hyperglycemia noted postoperatively due to steroids -- improved/stable (4) Asthma: Plan: On no maintenance inhalers for this. No acute exacerbation suspected. 96% on RA (5) Depression: Plan: Continue Lexapro daily (6) Esophageal reflux: Plan: Switch omeprazole to pantoprazole per hospital formulary Continue famotidine (7) Peripheral neuropathy: Plan: Continue gabapentin 300 mg p.o. HS (8) Insomnia: Plan: PDMP checked and patient's Ambien prescribed PRN Plan Thank you for allowing hospitalist service to participate in the care of Mr Jara. Hospitalist will sign off, please call with any questions/concerns. Admission and Anticipated Discharge Date Admission Date: December 05, 2023 Supervising Physician Co-Signing Physician Notes The patient was not seen by me. The chart was reviewed. Case discussed with MERCEDES Messina. Agree with assessment and plan Subjective Eval this morning, sitting up in bed, pain controlled. Sensation to fingers intact but not able to move his shoulder yet at this time. No fever/chills, chest pain/shortness of breath. Eating/drinking without issue. +flatus but no BM. About to work with therapy. Questions/concerns addressed at present time. Physical Exam 2 Physical Exam: General 78yo male sitting up in bed, about to work with therapy, NAD HEENT: head atraumatic, normocephalic, mmm, trachea midline Resp: Even,, unlabored, no tachypnea/cough, no w/c/r, on room air CV: RRR, no significant m/r/g, no pitting edema/calf tenderness, pulses palpable GI: +BS, slight distension but nontender MSK/Neuro: dressing to R shoulder c/d/i, hemovac w/ bloody output, sling to shoulder fingers mobile, sensation to fingers intact, pulse palpable, sticker on strength intact. no ROM at shoulder at present Psych: AOx3, cooperative with exam Results & Data Results & Data Vital Signs (Past 12 Hours) Vital Signs Temp Pulse Resp BP Pulse Ox O2 Del Method 12/06/23 07:17 36.5 C 67 16 150/78 H 96 Room Air 12/06/23 04:26 36.3 C L 68 18 144/77 H 96 Room Air 12/05/23 23:25 36.8 C 68 18 133/71 96 Room Air Laboratory Results 12/06/23 05:33 12/06/23 05:33 Diagnostic Findings Shoulder X-Ray 12/05/23 14:06 XR shoulder RT min 2V routine CLINICAL HISTORY: Post shoulder surgery COMPARISON STUDY: None. FINDINGS: Status post reverse right total shoulder arthroplasty. The hardware is intact. No fracture or dislocation. Skin bill and surgical drains are in place. Acromioplasty is also noted. IMPRESSION: Status post reverse right total shoulder arthroplasty. No evidence for hardware complication. ACT 112: Negative or not required by law. Electronically signed by: Ac Martins M.D. 12/05/2023 2:41 PM PG Care Time/CCT Total # of Minutes Spent Total Time Spent with Patient: Total time spent is greater than 50% in coordination of care (as documented) at patient's floor/unit and/or counseling patient: Coding Level of Care Code 01401 SUB INP/OBS CARE 2/35MIN Diagnoses Status post total shoulder arthroplasty Z96.619 Steroid-induced hyperglycemia R73.9; T38.0X5A Diabetes mellitus E11.9 Asthma J45.909 Depression F32.9 Esophageal reflux K21.9 Peripheral neuropathy G62.9 Insomnia G47.00
[2023-12-06] MEDS ORDERED: PSYLLIUM or GUAR GUM FIBER POWDER PACKET PO SCH (11:30)
--- NOTE | 2023-12-06 15:49 | Discharge Summary ---
Date of Service December 06, 2023 Admission HPI Per Admitting Provider 78-year-old male with past medical history significant for high cholesterol, history of basal cell carcinoma, diabetes, who presents with ongoing right shoulder pain. Pain is interfering with his daily activities. He has failed conservative measures and would like to proceed with surgical management. Patient denies headaches, sweats, fevers, chills, double vision, blurred vision, cough, sore throat, dysphagia, chest pain, sob, wheezing, n/v/d/c, numbness, tingling, fatigue, urinary symptoms, mood disorders. ROS positive for right shoulder pain and stiffness. Admission Exam Per Admitting Provider Constitutional: well developed and well nourished; no acute distress Eyes: PERRL, conjunctivae normal, anicteric sclerae ENMT: external ear and nose normal, oropharynx normal Neck: trachea midline, no thyromegaly Respiratory: normal respiratory effort, lungs clear to auscultation Cardiovascular: RRR, no murmur, no edema Musculoskeletal: Right shoulder: Crepitus with range of motion. Positive pinch with signs, positive belly press. Positive Drop arm test, Tutu deformity. Abduction actively to 45 degrees, forward flexion to 30 degrees actively. Skin: no rashes, warm and dry Neurologic: patellar DTR's 2+ bilat, sensation intact Psychiatric: A+Ox3, euthymic affect Principal Diagnosis Right shoulder rotator cuff arthropathy Discharge Exam Right shoulder: Sling is in place. Dressing is clean, dry, intact. Fingers are mobile with good ambulatory technologist strength. Distal neurovascular status and sensation is grossly intact. Discharge Data Allergies Allergy/AdvReac Type Severity Reaction Status Date / Time pollen extracts Allergy Mild sneezing, Verified 12/05/23 09:18 eyes watering No Known Drug Allergies Allergy Unknown NKDA Verified 12/05/23 09:18 Dust Allergy Mild sneezing, Uncoded 12/05/23 09:18 eyes water Aromatic Oils Allergy Unknown perfume, Uncoded 12/05/23 09:18 powder, candles-SOB Consultations 12/05/23 16:41 Consult Hospitalist Routine Procedures Performed Operation Date: 12/05/23 10:10 Actual Procedures p Right Reverse Total Shoulder Arthroplasty(Right) - Doe Dejesus MD Ordered Studies 12/05/23 05:00 US - OR guided needle placemen Routine Hospital Course (1) Status post reverse total arthroplasty of right shoulder: Postop day #1 right reverse total shoulder arthroplasty -PT/OT: No shoulder range of motion. May do elbow/wrist/hand motion, pendulums, shrugs. -DVT prophylaxis: SCDs -A.m. labs are pending -Pain management as written -Discharge planning: Plan on discharge home if progresses well with therapy. If fails to progress possibly may need rehab. Lab Results 12/05/23 12/05/23 12/05/23 Range/Units 09:15 14:10 16:52 WBC (4.8-10.8) K/ul RBC (4.70-6.10) M/uL Hgb (14.0-18.0) g/dl Hct (42.0-52.0) % MCV (80.0-100.0) fL MCH (25.0-34.0) pg MCHC (32.0-36.0) g/dL RDW Std Deviation (36.4-46.3) fL RDW Coeff of Micahel (11.5-14.5) % Plt Count (130-400) K/uL MPV (9.4-12.4) fL Immature Gran % (Auto) % Neut % (Auto) % Lymph % (Auto) % Clayton % (Auto) % Eos % (Auto) % Baso % (Auto) % Neut # (Auto) (1.40-6.50) K/uL Lymph # (Auto) (1.20-3.40) K/uL Clayton # (Auto) (0.11-0.59) K/uL Eos # (Auto) (0.00-0.50) K/uL Baso # (Auto) (0.00-0.20) K/uL Immature Gran # (Auto) (0.01-0.20) K/uL Sodium (136-145) mmol/L Potassium (3.5-5.1) mmol/L Chloride (98-107) mmol/L Carbon Dioxide (21-32) mmol/L Anion Gap (3-11) BUN (6-23) mg/dl Creatinine (0.6-1.4) mg/dl Est Cr Clr Drug Dosing ml/min Est GFR ( Amer) ml/min Est GFR (Non-Af Amer) ml/min BUN/Creatinine Ratio (10-20) Glucose (70-99(Fasting)) mg/dl POC Glucose 117 H 163 H 326 H* (70-99) mg/dl Calcium (8.6-10.3) mg/dl 12/05/23 12/05/23 12/05/23 Range/Units 16:54 16:58 20:47 WBC (4.8-10.8) K/ul RBC (4.70-6.10) M/uL Hgb (14.0-18.0) g/dl Hct (42.0-52.0) % MCV (80.0-100.0) fL MCH (25.0-34.0) pg MCHC (32.0-36.0) g/dL RDW Std Deviation (36.4-46.3) fL RDW Coeff of Michael (11.5-14.5) % Plt Count (130-400) K/uL MPV (9.4-12.4) fL Immature Gran % (Auto) % Neut % (Auto) % Lymph % (Auto) % Clayton % (Auto) % Eos % (Auto) % Baso % (Auto) % Neut # (Auto) (1.40-6.50) K/uL Lymph # (Auto) (1.20-3.40) K/uL Clayton # (Auto) (0.11-0.59) K/uL Eos # (Auto) (0.00-0.50) K/uL Baso # (Auto) (0.00-0.20) K/uL Immature Gran # (Auto) (0.01-0.20) K/uL Sodium (136-145) mmol/L Potassium (3.5-5.1) mmol/L Chloride (98-107) mmol/L Carbon Dioxide (21-32) mmol/L Anion Gap (3-11) BUN (6-23) mg/dl Creatinine (0.6-1.4) mg/dl Est Cr Clr Drug Dosing ml/min Est GFR ( Amer) ml/min Est GFR (Non-Af Amer) ml/min BUN/Creatinine Ratio (10-20) Glucose (70-99(Fasting)) mg/dl POC Glucose 282 H 290 H 195 H (70-99) mg/dl Calcium (8.6-10.3) mg/dl 12/06/23 12/06/23 Range/Units 05:33 07:46 WBC 11.97 H (4.8-10.8) K/ul RBC 4.01 L (4.70-6.10) M/uL Hgb 11.6 L (14.0-18.0) g/dl Hct 36.2 L (42.0-52.0) % MCV 90.3 (80.0-100.0) fL MCH 28.9 (25.0-34.0) pg MCHC 32.0 (32.0-36.0) g/dL RDW Std Deviation 44.5 (36.4-46.3) fL RDW Coeff of Michael 13.5 (11.5-14.5) % Plt Count 232 (130-400) K/uL MPV 11.1 (9.4-12.4) fL Immature Gran % (Auto) 0.3 % Neut % (Auto) 83.0 % Lymph % (Auto) 9.0 % Clayton % (Auto) 7.3 % Eos % (Auto) 0.1 % Baso % (Auto) 0.3 % Neut # (Auto) 9.94 H (1.40-6.50) K/uL Lymph # (Auto) 1.08 L (1.20-3.40) K/uL Clayton # (Auto) 0.87 H (0.11-0.59) K/uL Eos # (Auto) 0.01 (0.00-0.50) K/uL Baso # (Auto) 0.04 (0.00-0.20) K/uL Immature Gran # (Auto) 0.03 (0.01-0.20) K/uL Sodium 136 (136-145) mmol/L Potassium 4.2 (3.5-5.1) mmol/L Chloride 101 (98-107) mmol/L Carbon Dioxide 25 (21-32) mmol/L Anion Gap 10 (3-11) BUN 16 (6-23) mg/dl Creatinine 1.06 (0.6-1.4) mg/dl Est Cr Clr Drug Dosing 59.6 ml/min Est GFR ( Amer) 76.4 ml/min Est GFR (Non-Af Amer) 66.0 ml/min BUN/Creatinine Ratio 15.1 (10-20) Glucose 140 H (70-99(Fasting)) mg/dl POC Glucose 132 H (70-99) mg/dl Calcium 8.5 L (8.6-10.3) mg/dl Total Time Total Time Spent Total Time Spent (In Minutes): 20 Discharge Plan Discharge Items Patient Disposition: Home - Home Health Services Reason For Visit: POST OP Discharge Diagnosis: Right shoulder rotator cuff arthropathy Activity: Per Instructions section Non-emergency contact: Surgeon Call non-emergency contact if: you have any medication questions, your pain is not controlled, you have a fever, your temperature is above 101, your wound has increased redness and your wound has increased drainage Follow-up/Referrals: Raysa Lopez CRNP [Primary Care Provider] - 12/13/23 1:30 pm (APPOINTMENT WITH PATSY VALLECILLO) Diet: Regular Addtl Attending Provider Instructions: ACTIVITY RECOMMENDATIONS: SELF CARE INSTRUCTIONS AFTER TOTAL SHOULDER ARTHROPLASTY REVERSE A. You may do daily exercises as taught in physical therapy while in hospital. No lifting with the operative arm. B. You are to wear your sling/immobilizer at all times EXCEPT when performing your daily exercises and for hygiene purposes. C. You may perform dry, daily dressing changes. Please keep your incision covered. You may shower 48 hours after surgery. Do not apply soap or any ointment/lotions directly over incision. Do not soak incision in bath tub/swimming pool. D. You may use ice as needed to operative shoulder. SPECIAL CARE INSTRUCTIONS: VERY IMPORTANT TO READ AND REVIEW A. There are a few signs you need to watch for after you are home. Call [facility] at [phone] if you experience any of the followin. Increased severe shoulder pain. Some pain is expected especially when you exercise. 2. Increased swelling in you shoulder or arm; pain or swelling in either upper extremity. 3. Any fluid drainage from the incision. 4. Shortness of breath or chest pain. B. Please call [facility] at [phone] if you have any questions or concerns about your operation or recovery. C. Call your physician if: 1. Temperature is greater than 101 degrees (F). 2. Pain is not relieved by prescribed pain medications. 3. Increase drainage or redness from incision. 4. Unanswered questions or concerns. FOLLOW UP VISIT: Please call [facility] at [phone] to schedule a follow up appointment with Dr. Dejesus or his PA in 12-14 days from your surgery date. Stand-Alone Forms: My [facility], Smoking Cessation Medications and DC Order Prescriptions: New acetaminophen [Tylenol Extra Strength] 500 mg Tablet 1,000 mg PO Q8 Qty: 60 0RF oxycodone 5 mg Tablet 5 - 10 mg PO .Q4h-6h MDD 6 PRN (Reason: pain) Qty: 30 0RF Rx Instructions: Ongoing therapy, Dr. Dejesus supervising cefadroxil 500 mg capsule 500 mg PO BID Qty: 28 0RF Continued (DME) Wheeled Walker Misc See Rx Instructions .Route Qty: 1 0RF Rx Instructions: As directed gabapentin 300 mg capsule 300 mg PO HS Qty: 90 3RF omeprazole 20 mg capsule,delayed release(DR/EC) 20 mg PO QAM lidocaine 5 % adhesive patch,medicated 1 patch transdermal .COMPLEX Qty: 3 3RF Rx Instructions: 1 patch transdermal apply 1 patch to the affected area and leave in place for 12 hours, then remove and leave off for 12 hours; cetirizine [Zyrtec] 10 mg tablet 10 mg PO QAM omega-3 acid ethyl esters [Lovaza] 1 gram capsule 1 cap PO BID cholecalciferol (vitamin D3) 25 mcg (1,000 unit) capsule 25 mcg PO QPM cinnamon bark [Cinnamon] 500 mg capsule 500 mg PO BID lubiprostone [Amitiza] 24 mcg Capsule 24 mcg PO BID Metamucil Fiber Thin 2.5 gram Wafer 2 wafer PO QDL polyethylene glycol 3350 [Miralax] 17 gram powder in packet 8.5 g PO Q3D PRN (Reason: Constipation) famotidine [Pepcid] 20 mg tablet 20 mg PO QPM escitalopram oxalate [Lexapro] 5 mg tablet 5 mg PO QPM Digestive Advantage Probio-Pre 800 million cell tablet 1,600 cell PO BID albuterol sulfate 90 mcg/actuation Hfa Aerosol Inhaler 1 inh INHALATION QID PRN (Reason: sob) zolpidem [Ambien] 10 mg tablet 10 mg PO HS PRN (Reason: insomnia) Krames/Other Patient Handouts: Shoulder Replace Home Recovery, ED Sling Admission Data Admit Date/Time: 12/05/23 14:06 Attending Provider: Doe Dejesus Admit Provider: Doe Dejesus Primary Care Provider: Raysa Lopez Other Providers: Ramesh Kam Other Interventions: Discharge Summary Assessment (RN) Last Done: 12/06/23 10:31
== END 2023-12-06 11:55 | disposition home health service (06) ==
LOC: ASU 08:42 → 3E 08:42